=== PATIENT | female | born 1960 | race Caucasian/White ===

== ENCOUNTER 2017-08-11 17:38 | Emergency (ER) | payer OTHER, SELFPAY ==
[2017-08-11 17:38] VITALS: BP 147/91; PULSE 106; RESP 20; TEMP 36.6; O2SAT 96; BMI 54.3
--- NOTE | 2017-08-11 18:37 | ED.RN ---
pt chart has been up for 1 hour. no physician has seen. charge nurse made aware
--- NOTE | 2017-08-11 18:52 | ED.VISSUMM ---
- ER Visit Summary Date of Service: 08/11/17 Chief Complaint: Back pain History of Present Illness: The patient is a 57 F who states that she is having a flare of her chronic back pain. The patient states that she has recently had an MRI (showed some disc disease) and is seeing Dr. Scruggs at the [facility] for spine surgery. She was referred back to [facility] to pain management for injections. She has been taking some anti-inflammatories and gabapentin for other nerve pain. She states she is not sure what happened today but she is having increasing pain in the left buttock. No bowel or bladder dysfunction. She has been able to ambulate. No muscle weakness. No change in sensation. No fevers. No history of IV drug use. No rashes. Physical Examination: Afebrile vital signs are stable Gen: Well-nourished well-developed obese Head: Normocephalic atraumatic Eyes: Perrl EOMI ENT: TMs clear no rhinorrhea moist mucous membranes Neck: Supple no lymphadenopathy no JVD nontender CVS: Regular rate rhythm no murmurs normal S1-S2 Respiratory: No distress clear to auscultation bilaterally chest nontender Abdomen: Soft nontender nondistended normal bowel sounds no masses Back: Her to palpation in the left buttock and lower left paraspinal lumbar musculature Extremity: Nontender no edema Skin: Normal color no rash Neuro: alert orientated ?3 CN II-XII intact normal strength sensation reflexes gait cerebellar Psych: Normal affect normal mood Emergency Department Course and Treatment: Oars report was performed. It has been many months since the patient received a prescription for narcotic and then only for a few pills. Patient will receive a dose of morphine here and I will write for a couple days worth of [place]. She will follow-up with her primary care physician. Impression:. Acute on chronic low back pain This note was generated with [employer] dictation software. It may contain incorrect words, spelling, and punctuation that were not noted in review of the chart prior to signing ED Disposition - Plan for ED Patient: Disposition: Home or Assisted Living Chief Complaint: Back Instructions: ED Spasm Back No Trauma Prescriptions: Hydrocodone Bitart/Apap 5-325 [[place] 5/325] 1 tab PO Q4H PRN PRN 4 Days #20 tab PRN Reason: Pain Referrals: James Lima MD [STAFF PHYSICIAN] - As soon as possible
[2017-08-11] MEDS: morphine 10 MG/ML Syringe IM (18:56)
--- NOTE | 2017-08-11 18:56 | ED.DCSUM_ITS ---
- ER Visit Summary Date of Service: 08/11/17 Chief Complaint: Back pain History of Present Illness: The patient is a 57 F who states that she is having a flare of her chronic back pain. The patient states that she has recently had an MRI (showed some disc disease) and is seeing Dr. Scruggs at the [facility] for spine surgery. She was referred back to [facility] to pain management for injections. She has been taking some anti-inflammatories and gabapentin for other nerve pain. She states she is not sure what happened today but she is having increasing pain in the left buttock. No bowel or bladder dysfunction. She has been able to ambulate. No muscle weakness. No change in sensation. No fevers. No history of IV drug use. No rashes. Physical Examination: Afebrile vital signs are stable Gen: Well-nourished well-developed obese Head: Normocephalic atraumatic Eyes: Perrl EOMI ENT: TMs clear no rhinorrhea moist mucous membranes Neck: Supple no lymphadenopathy no JVD nontender CVS: Regular rate rhythm no murmurs normal S1-S2 Respiratory: No distress clear to auscultation bilaterally chest nontender Abdomen: Soft nontender nondistended normal bowel sounds no masses Back: Her to palpation in the left buttock and lower left paraspinal lumbar musculature Extremity: Nontender no edema Skin: Normal color no rash Neuro: alert orientated ?3 CN II-XII intact normal strength sensation reflexes gait cerebellar Psych: Normal affect normal mood Emergency Department Course and Treatment: Oars report was performed. It has been many months since the patient received a prescription for narcotic and then only for a few pills. Patient will receive a dose of morphine here and I will write for a couple days worth of [place]. She will follow-up with her primary care physician. Impression:. Acute on chronic low back pain This note was generated with [employer] dictation software. It may contain incorrect words, spelling, and punctuation that were not noted in review of the chart prior to signing ED Disposition - Plan for ED Patient: Disposition: Home or Assisted Living Chief Complaint: Back Instructions: ED Spasm Back No Trauma Prescriptions: Hydrocodone Bitart/Apap 5-325 [[place] 5/325] 1 tab PO Q4H PRN PRN 4 Days #20 tab PRN Reason: Pain Referrals: James Lima MD [STAFF PHYSICIAN] - As soon as possible
[2017-08-11 19:21] VITALS: BP 132/70; PULSE 82; RESP 14; O2SAT 99
== END 2017-08-11 19:23 | disposition home or self-care (01) ==
PROVIDERS: Emergency Provider Emergency Medicine; Family Provider Family Medicine; PCP Family Medicine
DX: M54.5 Low back pain (principal); G89.29 Other chronic pain; I10 Essential (primary) hypertension; G25.81 Restless legs syndrome; K21.9 Gastro-esophageal reflux disease without esophagitis; E66.9 Obesity, unspecified; Z79.899 Other long term (current) drug therapy
CPT/HCPCS: 96372; 99282

== ENCOUNTER 2017-09-24 13:38 | Day surgery (SDC) | payer OTHER, SELFPAY ==
[2017-09-24 13:57] VITALS: BP 151/93; PULSE 93; RESP 16; TEMP 35.9; O2SAT 100; BMI 53.8
--- NOTE | 2017-09-24 14:50 | RAD_ITS ---
PROCEDURE: Caudal block. DATE OF EXAMINATION: September 24, 2017. INDICATION: Female, 57 years old. Chronic low back pain. FLUOROSCOPY TIME (if supplied): (0:20) minutes/seconds Intraoperative imaging provided for caudal block. RAD/Fluor Guidance for Spine Inj IMPRESSION: Intraoperative imaging provided for caudal block. Electronically Signed: Angel Chaudhari MD at 15:36 EDT Tel [phone], Service support ,
[2017-09-24] MEDS: MethylPREDNISolone Acetate 80 MG/ML Vial (14:55)
[2017-09-24] MEDS: Bupivacaine 0.25% 30 ML Vial (14:55)
[2017-09-24 15:00] VITALS: BP 151/93
[2017-09-24 15:02] VITALS: BP 141/88; BP 151/93; PULSE 101; RESP 20; TEMP 36.7; O2SAT 95
[2017-09-24 15:07] VITALS: BP 146/90; BP 151/93; PULSE 104; RESP 16; O2SAT 92
[2017-09-24 15:12] VITALS: BP 140/88; BP 151/93; PULSE 103; RESP 16; O2SAT 92
[2017-09-24 15:17] VITALS: BP 145/87; BP 151/93; PULSE 102; RESP 16; TEMP 36.6; O2SAT 92
--- NOTE | 2017-09-24 15:33 | OP.PCM_ITS ---
Problem List (1) Degeneration of intervertebral disc of lumbosacral region Status: Chronic (2) Radiculopathy of lumbosacral region Status: Chronic Report of Operation Date of Procedure: 09/24/17 Pre-Operative Diagnosis: Lumbosacral radiculopathy, lumbosacral degenerative disc disease, lumbosacral spinal stenosis Post-Operative Diagnosis: Lumbosacral radiculopathy, lumbosacral degenerative disc disease, lumbosacral spinal stenosis Surgery/Procedure Performed:: Diagnostic/therapeutic caudal epidural steroid injection Description of Surgical Findings:: PROCEDURE: Diagnostic/therapeutic caudal epidural steroid injection PREOPERATIVE DIAGNOSIS: Lumbosacral radiculopathy, lumbosacral degenerative disc disease, lumbosacral spinal stenosis POSTOPERATIVE DIAGNOSIS: Lumbosacral radiculopathy, lumbosacral degenerative disc disease, lumbosacral spinal stenosis ANESTHESIA: MAC COMPLICATIONS: None BLOOD LOSS: Minimal PROCEDURE IN DETAIL: History and physical today was reviewed. Risks and benefits of the procedure were explained. The patient understood, agreed to our procedure, and informed consent was obtained. IV inserted per routine protocol. The patient was taken to the operating room, placed in a prone position with a pillow positioned underneath the abdomen. The lower back and tailbone area was prepped and draped in a sterile fashion using iodine ?3 under fluoroscopy guidance on the lateral view the caudal space was identified the skin and subcutaneous tissue and size approximately 3 cc of 1 % lidocaine using a 25-gauge regular needle under direct visualization fluoroscopy using the lateral approach using a 22-gauge 3-1/2 inch spinal needle the needle was advanced via the skin through the sacral hiatus, tip of the needle passed through the sacrococcygeal ligament advanced approximately S4 area after negative aspiration for blood or CSF a total of 3 cc of contrast were injected to confirm correct placement of the needle as well as cephalad spread the spread was followed to approximately L5 area after confirmation AP as well as lateral view repeated negative aspiration a total of 15 cc of preservative-free 0.125% Marcaine with 80 mg of the portal was injected easily. The needles were then removed intact. The patient experienced no signs or symptoms intrathecal, intravascular injection. The patient experienced no paraesthesia. The procedure was completed without any apparent difficult, any complication. The patient appeared to tolerate well. ASSESSMENT AND PLAN: This is a 57-year-old female with lumbosacral radiculopathy, lumbosacral degenerative disc disease, lumbosacral spinal stenosis status post diagnostic/ therapeutic caudal epidural steroid injection. The patient will continue her current medications. The patient will follow in approximately 2 weeks for possible repeat of the procedure if indicated.
[2017-09-24] MEDS: HYDROcodone Bitartrate/Apap 5/325 Tablet PO (15:45)
== END 2017-09-24 16:04 | disposition home or self-care (01) ==
LOC: SDC 13:38 → AC 13:40
PROVIDERS: Family Provider Family Medicine; PCP Family Medicine; Visit Provider Anesthesiology Pain Medicine
PROC: 3E0S3BZ Introduction of Anesthetic Agent into Epidural Space, Percutaneous Approach (ICD-10-PCS; CPT 62282; principal; 2017-09-24 14:45)
DX: M51.17 Intervertebral disc disorders with radiculopathy, lumbosacral region (principal); M47.27 Other spondylosis with radiculopathy, lumbosacral region; M48.07 Spinal stenosis, lumbosacral region; G89.29 Other chronic pain; M06.9 Rheumatoid arthritis, unspecified; J44.9 Chronic obstructive pulmonary disease, unspecified; I10 Essential (primary) hypertension; E03.9 Hypothyroidism, unspecified; G25.81 Restless legs syndrome; G43.909 Migraine, unspecified, not intractable, without status migrainosus; G47.30 Sleep apnea, unspecified; K21.9 Gastro-esophageal reflux disease without esophagitis; G47.00 Insomnia, unspecified; F31.9 Bipolar disorder, unspecified; F41.9 Anxiety disorder, unspecified; E66.3 Overweight; Z68.43 Body mass index [BMI] 50.0-59.9, adult; M79.1 Myalgia; F17.210 Nicotine dependence, cigarettes, uncomplicated; Z78.0 Asymptomatic menopausal state; Z79.891 Long term (current) use of opiate analgesic; Z79.899 Other long term (current) drug therapy
CPT/HCPCS: 62323; 64483; 77003; J7120; J3490

== ENCOUNTER 2017-11-05 09:00 | Day surgery (SDC) | payer OTHER, SELFPAY ==
[2017-11-05 09:20] VITALS: BP 118/86; PULSE 97; RESP 20; TEMP 36.3; O2SAT 100; BMI 56.2
--- NOTE | 2017-11-05 10:30 | RAD_ITS ---
STUDY: LEFT FACET JOINT BLOCK. REASON FOR EXAM: Female, 57 years old. Back pain. FLUOROSCOPY TIME (if supplied): (0:25) minutes/seconds TECHNIQUE: Intraoperative imaging provided for left L3-S1 facet joint block. COMPARISON: None. FINDINGS: Intraoperative imaging provided for left L3-S1 facet joint block. RAD/L/S Spine Min 4 Views IMPRESSION: Imaging provided for left L3-S1 facet joint block. Electronically Signed: Angel Chaudhari MD at 11:20 EDT Tel [phone], Service support ,
[2017-11-05 10:55] VITALS: BP 118/86; BP 126/88; PULSE 94; RESP 16; TEMP 36.2; O2SAT 92
[2017-11-05 11:00] VITALS: BP 118/86; BP 130/51; PULSE 93; RESP 16; O2SAT 92
[2017-11-05 11:05] VITALS: BP 113/86; BP 118/86; PULSE 92; RESP 18; O2SAT 97
[2017-11-05 11:10] VITALS: BP 118/86; BP 125/82; PULSE 88; RESP 16; TEMP 36.6; O2SAT 92
[2017-11-05 11:30] VITALS: BP 118/86; BP 125/82
--- NOTE | 2017-11-05 11:50 | OP.PCM_ITS ---
Problem List (1) Lumbosacral spondylosis Status: Chronic (2) Degeneration of intervertebral disc of lumbosacral region Status: Chronic (3) Radiculopathy of lumbosacral region Status: Chronic Report of Operation Date of Procedure: 11/05/17 Pre-Operative Diagnosis: Lumbosacral spondylosis, lumbosacral degenerative disc disease, lumbar facet arthropathy Post-Operative Diagnosis: Lumbosacral spondylosis, lumbosacral degenerative disc disease, lumbar facet arthropathy Surgery/Procedure Performed:: Left-sided lumbar facet steroid injection L3, L4, L5, S1 Description of Surgical Findings:: PROCEDURE: Left-sided lumbar facet steroid injection L3, L4, L5, S1 PREOPERATIVE DIAGNOSIS: Lumbosacral spondylosis, lumbosacral degenerative disc disease, and lumbar facet arthropathy POSTOPERATIVE DIAGNOSIS: Lumbosacral spondylosis, lumbosacral degenerative disc disease, and lumbar facet arthropathy ANESTHESIA: MAC COMPLICATIONS: None BLOOD LOSS: Minimal PROCEDURE IN DETAIL: History and physical today was reviewed. Risks and benefits of the procedure were explained. The patient understood, agreed to our procedure, and informed consent was obtained. IV inserted per routine protocol. The patient was taken to the operating room, placed in a prone position with a pillow positioned underneath the abdomen. The left side of her lower back was prepped and draped in a sterile fashion using iodine x3. Under fluoroscopy guidance, on AP view, L3 through S1 vertebral bodies were visualized. Skin and subcutaneous tissues were anesthetized with approximately 5 mL of 1% lidocaine using a 25-gauge regular needle. Under direct visualization with fluoroscopy at approximately 25-degree angle, starting on the left L3, ending on the left S1, passing through the L4-L5 using a 22-gauge 3 1/2-inch spinal needle, the needle was advanced via the skin. The tip of the needle was maneuvered and directed towards the superior and medial gutter of the transverse process at the vicinity of the medial branch. Once the tip of the needle was in contact with the bone, the needle pulled approximately 2 mm off the bone. After negative aspiration of blood with CSF and confirmation of AP as well as oblique view, a total of 8 mL of preservative-free 0.25% Marcaine with 80 mg of Depo- Medrol was injection in divided doses between those 4 levels. The needles were then removed intact. The patient experienced no signs or symptoms intrathecal, intravascular injection. The patient experienced no paraesthesia. The procedure was completed without any apparent difficult, any complication. The patient appeared to tolerate well. ASSESSMENT AND PLAN: This is a 57-year-old Female with lumbosacral spondylosis, lumbosacral degenerative disc disease, and lumbar facet arthropathy, status post left-sided lumbar facet steroid injection L3 through S1. The patient will continue her current medications. The patient will follow in approximately 2 weeks for possible repeat of the procedure if indicated.
== END 2017-11-05 11:49 | disposition home or self-care (01) ==
LOC: SDC 09:01 → AC 09:02
PROVIDERS: Family Provider Family Medicine; PCP Family Medicine; Visit Provider Anesthesiology Pain Medicine
PROC: 3E0T3BZ Introduction of Anesthetic Agent into Peripheral Nerves and Plexi, Percutaneous Approach (ICD-10-PCS; CPT 64493; principal; 2017-11-05 10:25)
DX: M51.17 Intervertebral disc disorders with radiculopathy, lumbosacral region (principal); M47.27 Other spondylosis with radiculopathy, lumbosacral region; M48.07 Spinal stenosis, lumbosacral region; M79.1 Myalgia; G89.29 Other chronic pain; J44.9 Chronic obstructive pulmonary disease, unspecified; M06.9 Rheumatoid arthritis, unspecified; I10 Essential (primary) hypertension; E03.9 Hypothyroidism, unspecified; G25.81 Restless legs syndrome; G43.909 Migraine, unspecified, not intractable, without status migrainosus; F31.9 Bipolar disorder, unspecified; G47.00 Insomnia, unspecified; G47.30 Sleep apnea, unspecified; K21.9 Gastro-esophageal reflux disease without esophagitis; F41.9 Anxiety disorder, unspecified; F17.200 Nicotine dependence, unspecified, uncomplicated; Z78.0 Asymptomatic menopausal state; Z79.891 Long term (current) use of opiate analgesic; Z79.899 Other long term (current) drug therapy; Z87.11 Personal history of peptic ulcer disease; Z96.653 Presence of artificial knee joint, bilateral
CPT/HCPCS: 64493; 64494; 64495; 64483; 72110; J7120

== ENCOUNTER 2017-12-10 06:39 | Day surgery (SDC) | payer OTHER, SELFPAY ==
[2017-12-10] VITALS (7 sets, daily range): BP systolic 97–120; BP diastolic 71–83; PULSE 84–90; RESP 16–18; TEMP 36–36.8; O2SAT 93–97; BMI 54.9
--- NOTE | 2017-12-10 08:10 | RAD_ITS ---
PROCEDURE: Fluoroscopy for pain management, lumbar facet block L3-S1 DATE OF EXAMINATION: 12/10/2017 INDICATION: Female, 57 years old. Lower back pain. PHYSICIAN: Dr. Arreguin FLUOROSCOPY TIME (if supplied): (0:27) minutes/seconds RADIATION DOSAGE (If Supplied By Facility): 21.27 mGy Images: 4 fluoroscopic spot images. PROCEDURE/TECHNIQUE: Intraoperative imaging provided under direction, supervision and review of the intraoperative physician for left L3-S1 facet joint block. Please see intraoperative note for details. RAD/L/S Spine Min 4 Views IMPRESSION: Fluoroscopic imaging provided for left L3-S1 facet joint block for pain management. Please see intraoperative note for details Electronically Signed: Shabbir Arauz, at 10:03 EDT Tel , Service support ,
[2017-12-10] MEDS: Bupivacaine 0.25% 30 ML Vial (08:15)
[2017-12-10] MEDS: MethylPREDNISolone Acetate 80 MG/ML Vial (08:15)
--- NOTE | 2017-12-10 10:40 | OP.PCM_ITS ---
Problem List (1) Spondylosis of lumbosacral region without myelopathy or radiculopathy Status: Chronic (2) Degeneration of intervertebral disc of lumbosacral region Status: Chronic Report of Operation Date of Procedure: 12/10/17 Pre-Operative Diagnosis: Lumbosacral spondylosis, lumbosacral degenerative disc disease, lumbar facet arthropathy Post-Operative Diagnosis: Lumbosacral spondylosis, lumbosacral degenerative disc disease, lumbar facet arthropathy Surgery/Procedure Performed:: Left-sided lumbar facet steroid injection L3, L4, L5, L5, S1 Description of Surgical Findings:: PROCEDURE: Left-sided lumbar facet steroid injection L3, L4, L5, S1 PREOPERATIVE DIAGNOSIS: Lumbosacral spondylosis, lumbosacral degenerative disc disease, and lumbar facet arthropathy POSTOPERATIVE DIAGNOSIS: Lumbosacral spondylosis, lumbosacral degenerative disc disease, and lumbar facet arthropathy ANESTHESIA: MAC COMPLICATIONS: None BLOOD LOSS: Minimal PROCEDURE IN DETAIL: History and physical today was reviewed. Risks and benefits of the procedure were explained. The patient understood, agreed to our procedure, and informed consent was obtained. IV inserted per routine protocol. The patient was taken to the operating room, placed in a prone position with a pillow positioned underneath the abdomen. The right side of his lower back was prepped and draped in a sterile fashion using iodine x3. Under fluoroscopy guidance, on AP view, L3 through S1 vertebral bodies were visualized. Skin and subcutaneous tissues were anesthetized with approximately 5 mL of 1% lidocaine using a 25-gauge regular needle. Under direct visualization with fluoroscopy at approximately 25-degree angle, starting on the left L3, ending on the left S1, passing through the L4-L5 using a 22-gauge 3 1/2-inch spinal needle, the needle was advanced via the skin. The tip of the needle was maneuvered and directed towards the superior and medial gutter of the transverse process at the vicinity of the medial branch. Once the tip of the needle was in contact with the bone, the needle pulled approximately 2 mm off the bone. After negative aspiration of blood with CSF and confirmation of AP as well as oblique view, a total of 8 mL of preservative-free 0.25% Marcaine with 80 mg of Depo- Medrol was injection in divided doses between those 4 levels. The needles were then removed intact. The patient experienced no signs or symptoms intrathecal, intravascular injection. The patient experienced no paraesthesia. The procedure was completed without any apparent difficult, any complication. The patient appeared to tolerate well. ASSESSMENT AND PLAN: This is a 57-year-old Female with Lumbosacral spondylosis, lumbosacral degenerative disc disease, and lumbar facet arthropathy and lumbar facet arthropathy, status post left-sided lumbar facet steroid injection [id number]. The patient will continue her current medications. The patient will follow in approximately 2 weeks for possible repeat of the procedure if indicated.
== END 2017-12-10 09:22 | disposition home or self-care (01) ==
LOC: SDC 06:39 → AC 06:40
PROVIDERS: Family Provider Family Medicine; PCP Family Medicine; Visit Provider Anesthesiology Pain Medicine
PROC: 3E0T3BZ Introduction of Anesthetic Agent into Peripheral Nerves and Plexi, Percutaneous Approach (ICD-10-PCS; CPT 64493; principal; 2017-12-10 08:05)
DX: M47.897 Other spondylosis, lumbosacral region (principal); M51.37 Other intervertebral disc degeneration, lumbosacral region; M46.96 Unspecified inflammatory spondylopathy, lumbar region; M48.07 Spinal stenosis, lumbosacral region; I10 Essential (primary) hypertension; E03.9 Hypothyroidism, unspecified; G25.81 Restless legs syndrome; M06.9 Rheumatoid arthritis, unspecified; F32.9 Major depressive disorder, single episode, unspecified; F41.9 Anxiety disorder, unspecified; F31.9 Bipolar disorder, unspecified; J44.9 Chronic obstructive pulmonary disease, unspecified; G43.909 Migraine, unspecified, not intractable, without status migrainosus; K21.9 Gastro-esophageal reflux disease without esophagitis; Z78.0 Asymptomatic menopausal state; Z98.1 Arthrodesis status; Z90.49 Acquired absence of other specified parts of digestive tract; Z96.653 Presence of artificial knee joint, bilateral; Z79.891 Long term (current) use of opiate analgesic; Z79.899 Other long term (current) drug therapy; F17.210 Nicotine dependence, cigarettes, uncomplicated
CPT/HCPCS: 64493; 64494; 64495; 64483; 72110; J7120

== ENCOUNTER 2018-01-21 06:47 | Day surgery (SDC) | payer OTHER, SELFPAY ==
[2018-01-21] VITALS (7 sets, daily range): BP systolic 114–128; BP diastolic 67–87; PULSE 94–99; RESP 16–20; TEMP 36.1–36.7; O2SAT 93–95; BMI 55.3
[2018-01-21] MEDS: Bupivacaine 0.5% PF 10 ML VIAL (08:22)
[2018-01-21] MEDS: MethylPREDNISolone Acetate 40 MG/ML Vial IM (08:22)
--- NOTE | 2018-01-21 08:30 | RAD_ITS ---
STUDY: X-RAY - LUMBAR SPINE REASON FOR EXAM: Female, 57 years old. Left L3 S1 radiofrequency ablation. TECHNIQUE: 6 coned-down view(s) of the lumbar spine were obtained intraoperatively. 52.7 seconds of fluoroscopy was performed.. COMPARISON: None FINDINGS: Intraoperative imaging provided for left L3 S1 radiofrequency ablation. RAD/L/S Spine Min 4 Views IMPRESSION: Imaging provided for left L3 S1 radiofrequency ablation. Electronically Signed: Angel Chaudhari MD at 14:16 EDT Tel [phone], Service support ,
--- NOTE | 2018-01-21 12:00 | PCM.OPRPT ---
Problem List (1) Degeneration of intervertebral disc of lumbosacral region Status: Chronic (2) Lumbosacral spondylosis Status: Chronic (3) Spondylosis of lumbosacral region without myelopathy or radiculopathy Status: Chronic Report of Operation Date of Procedure: 01/21/18 Pre-Operative Diagnosis: Lumbosacral spondylosis, lumbosacral degenerative disc disease, lumbar facet arthropathy Post-Operative Diagnosis: Lumbosacral spondylosis, lumbosacral degenerative disc disease, lumbar facet arthropathy Surgery/Procedure Performed:: Left-sided lumbar radiofrequency ablation of the medial branch at L3, L4, L5, S1 Description of Surgical Findings:: PROCEDURE: Left-sided radiofrequency ablation of the medial branch L3, L4, L5, S1 PREOPERATIVE DIAGNOSES: Lumbosacral spondylosis, lumbosacral degenerative disc disease, lumbar facet arthropathy POSTOPERATIVE DIAGNOSES: Lumbosacral spondylosis, lumbosacral degenerative disc disease, lumbar facet arthropathy ANESTHESIA: MAC COMPLICATIONS: None BLOOD LOSS: Minimal PROCEDURE IN DETAIL: History and physical today was reviewed. Risks and benefits of procedure explained. The patient understood, agreed to the procedure and informed consent was obtained. IV inserted per routine protocol. The patient was taken to the operating room, placed in the prone position with a pillow positioned underneath the abdomen. The left side of the lower back was prepped and draped in a sterile fashion using iodine x 3. Under fluoroscopy guidance, on an oblique view, the L3 through S1 vertebral bodies were visualized. The skin and subcutaneous tissue was anesthetized with approximately 10 mL of 1% lidocaine using a 25-gauge regular needle. Under direct visualization with fluoroscopy at approximately 25-degree angle, starting on the left L3, ending on the left S1 passing through the L4-L5 using a 20-gauge 15 cm with a 10 mm curved active tip radiofrequency ablation needle the needle passed through the skin. The tip of the needle was maneuvered and directed towards the superior and medial gutter of the transverse process at the vicinity of the medial branch. Once the tip of the needle was in contact with the bone, the needle pulled approximately 2 mm up the bone. The stylet of each needle was then removed. After negative aspiration of blood with CSF and confirmation of AP as well as oblique view, radiofrequency ablation probe was then inserted at each level. Impedance was then recorded at L3 to be 210, at L4 244, at L5 286, at S1 300 ohm. Motor-evoked potential was then initiated to 1.5 volt without any motor response at each corresponding level. The probe was then removed intact and a total of 6 mL preservative-free 1% lidocaine was injected in divided doses between those 4 levels after negative aspiration of blood with CSF. The radiofrequency ablation probe was then reinserted after confirmation of AP, oblique as well as lateral view. Radiofrequency ablation was then initiated to 80 degrees Celsius for 90 seconds at each level. Once concluded, the probe was then removed intact and a total of 6 mL of preservative-free 0.25% Marcaine with 40 mg Depo-Medrol was injected in divided doses between those 4 levels. The needles were then removed intact. The patient experienced no signs or symptoms of intrathecal, intravascular injection. The patient experienced no paraesthesia. The procedure was completed without any apparent difficulty, any complication. The patient appeared to tolerate well. Sensory as well as motor exam was unchanged from prior to procedure. ASSESSMENT AND PLAN: This is a 57-year-old female with lumbosacral spondylosis, lumbosacral degenerative disc disease, lumbar facet arthropathy, status post left-sided radiofrequency ablation of the medial branch L3 through S1. The patient will continue her current medications. The patient will follow up in approximately 2 weeks for reevaluation.
== END 2018-01-21 09:45 | disposition home or self-care (01) ==
LOC: SDC 06:49 → AC 06:52
PROVIDERS: Family Provider Family Medicine; PCP Family Medicine; Visit Provider Anesthesiology Pain Medicine
PROC: (CPT 64635; principal; 2018-01-21 08:25)
DX: M51.37 Other intervertebral disc degeneration, lumbosacral region (principal); M47.817 Spondylosis without myelopathy or radiculopathy, lumbosacral region; M54.17 Radiculopathy, lumbosacral region; M48.07 Spinal stenosis, lumbosacral region; M46.96 Unspecified inflammatory spondylopathy, lumbar region; F32.9 Major depressive disorder, single episode, unspecified; I10 Essential (primary) hypertension; E03.9 Hypothyroidism, unspecified; F41.9 Anxiety disorder, unspecified; G25.81 Restless legs syndrome; M19.90 Unspecified osteoarthritis, unspecified site; M06.9 Rheumatoid arthritis, unspecified; F31.9 Bipolar disorder, unspecified; J44.9 Chronic obstructive pulmonary disease, unspecified; G47.30 Sleep apnea, unspecified; G43.909 Migraine, unspecified, not intractable, without status migrainosus; K21.9 Gastro-esophageal reflux disease without esophagitis; Z78.0 Asymptomatic menopausal state; Z90.49 Acquired absence of other specified parts of digestive tract; Z98.1 Arthrodesis status; Z79.891 Long term (current) use of opiate analgesic; Z79.899 Other long term (current) drug therapy; F17.210 Nicotine dependence, cigarettes, uncomplicated
CPT/HCPCS: 64635; 64636 ×3; 72110; 76000; J7120; J3490

== ENCOUNTER 2018-04-08 06:15 | Day surgery (SDC) | payer OTHER, SELFPAY ==
[2018-04-08 06:41] VITALS: BP 141/96; PULSE 102; RESP 18; TEMP 36; O2SAT 94; BMI 55.5
[2018-04-08] MEDS: Bupivacaine 0.25% 30 ML Vial (06:48)
--- NOTE | 2018-04-08 07:30 | RAD_ITS ---
PROCEDURE: Left L3-S1 facet joint block. DATE OF EXAMINATION: April 08, 2018. INDICATION: Female, 58 years old. Chronic low back pain. FLUOROSCOPY TIME (if supplied): (0:25) minutes/seconds. For cone down intraoperative views were obtained. Intraoperative fluoroscopy was performed for left L3-S1 facet joint block. RAD/L/S Spine Min 4 Views IMPRESSION: Intraoperative fluoroscopic services provided for left L3-S1 facet joint block. Electronically Signed: Angel Chaudhari MD at 8:26 EST Tel [phone], Service support ,
[2018-04-08] MEDS: MethylPREDNISolone Acetate 80 MG/ML Vial (07:43)
[2018-04-08 07:50] VITALS: BP 107/94; BP 128/81; BP 141/96; PULSE 93; PULSE 95; RESP 18; TEMP 36.7; O2SAT 92; O2SAT 93
[2018-04-08 08:00] VITALS: BP 129/82; BP 141/96; PULSE 92; RESP 18; O2SAT 96
[2018-04-08 08:05] VITALS: BP 118/76; BP 141/96; PULSE 96; RESP 18; TEMP 36.9; O2SAT 95
[2018-04-08 08:13] VITALS: BP 141/96
--- NOTE | 2018-04-08 08:19 | OP.PCM_ITS ---
Problem List (1) Degeneration of intervertebral disc of lumbosacral region Status: Chronic (2) Lumbosacral spondylosis Status: Chronic (3) Spondylosis of lumbosacral region without myelopathy or radiculopathy Status: Chronic Report of Operation Date of Procedure: 04/08/18 Pre-Operative Diagnosis: Lumbosacral spondylosis, lumbosacral degenerative disc disease, lumbar facet arthropathy Post-Operative Diagnosis: Lumbosacral spondylosis, lumbosacral degenerative disc disease, lumbar facet arthropathy Surgery/Procedure Performed:: Left-sided lumbar facet steroid injection L3, L4, L5, S1 Description of Surgical Findings:: PROCEDURE: Left sided lumbar facet steroid injection L3, L4, L5, S1 PREOPERATIVE DIAGNOSIS: Lumbosacral spondylosis, lumbosacral degenerative disc disease, lumbar facet arthropathy POSTOPERATIVE DIAGNOSIS: Lumbosacral spondylosis, lumbosacral degenerative disc disease, lumbar facet arthropathy ANESTHESIA: MAC COMPLICATIONS: None BLOOD LOSS: Minimal PROCEDURE IN DETAIL: History and physical today was reviewed. Risks and benefits of the procedure were explained. The patient understood, agreed to our procedure, and informed consent was obtained. IV inserted per routine protocol. The patient was taken to the operating room, placed in a prone position with a pillow positioned underneath the abdomen. The left side of her lower back was prepped and draped in a sterile fashion using iodine x3. Under fluoroscopy guidance, on AP view, L3 through S1 vertebral bodies were visualized. Skin and subcutaneous tissues were anesthetized with approximately 5 mL of 1% lidocaine using a 25-gauge regular needle. Under direct visualization with fluoroscopy at approximately 25-degree angle, starting on the left L3, ending on the left S1, passing through the L4-L5 using a 22-gauge 5-inch spinal needle, the needle was advanced via the skin. The tip of the needle was maneuvered and directed towards the superior and medial gutter of the transverse process at the vicinity of the medial branch. Once the tip of the needle was in contact with the bone, the needle pulled approximately 2 mm off the bone. After negative aspiration of blood with CSF and confirmation of AP as well as oblique view, a total of 8 mL of preservative-free 0.25% Marcaine with 80 mg of Depo- Medrol was injection in divided doses between those 4 levels. The needles were then removed intact. The patient experienced no signs or symptoms intrathecal, intravascular inje ction. The patient experienced no paraesthesia. The procedure was completed without any apparent difficult, any complication. The patient appeared to tolerate well. ASSESSMENT AND PLAN: This is a 57-year-old Female with Lumbosacral spondylosis, lumbosacral degenerative disc disease, lumbar facet arthropathy, status post right-sided lumbar facet steroid injection L3 through S1. The patient will continue her current medications. The patient will follow in approximately 2 weeks for possible repeat of the procedure if indicated.
--- OUTSIDE RECORDS SUMMARY | 2018-06-01 03:49 | XMS RPT_ITS ---
:1960 Author Organization [facility] Address [address] [place] [id number] Phone Care Team Providers Name Role Phone Valenciaco PA-Bertha Nayak Unavailable Reason for Visit Reason For Visit Description Start Date New/Est - 1st visit with physician Preliminary reason for visit data, not yet signed by the author as of back pain Preliminary reason for visit data, not yet signed by the author as of Chief Complaint Chief Complaint Description Start Date back pain Preliminary chief complaint data, not yet signed by the author as of Instructions No information available. Plan of Care Type Date Detail Appointment 01:30 PM Bertha Barboza PA-Nael, [facility] [facility], [place], [address], Appointment 08:50 AM Dung Chavez MD, [address] [facility], [facility], [place], [address], Pending order MRI lumbar without contrast Patient education [id number] Medications Medication Instructions Start Stop Generic Name NDC Provider Date Date WELLBUTRIN SR 150 MG one tablet BUPROPION HCL [id number] Bertha [id number] twice daily 07/23 D'Kelsi PA-C CYMBALTA 60 MG CPEP one capsule DULOXETINE HCL 93961531853 Bertha daily 07/23 D'Kelsi PA-C TRAZODONE HCL 100 MG one and half TRAZODONE HCL [id number] Bertha TABS tablets daily 07/23 D'Kelsi PA-C LISINOPRIL 5 MG TABS one tablet LISINOPRIL [id number] Bertha daily 07/23 D'Kelsi PA-C HYDROCHLOROTHIAZIDE one tablet HYDROCHLOROTHIAZIDE [id number] Bertha 25 MG TABS daily 07/23 D'Kelsi PA-C PRILOSEC 20 MG CPDR one capsule OMEPRAZOLE [id number] Bertha daily 07/23 D'Kelsi PA-C LEVOTHYROXINE SODIUM one tablet LEVOTHYROXINE SODIUM 73099094606 Bertha 125 MCG TABS daily 07/23 D'Kelsi PA-C TOPAMAX 25 MG TABS one tablet TOPIRAMATE [id number] Bertha daily 07/23 D'Kelsi PA-C BENTYL 10 MG CAPS one tablet DICYCLOMINE HCL 47317857558 Bertha three times 07/23 D'Kelsi daily PA-C GABAPENTIN 600 MG one tablet GABAPENTIN 86830023405 Bertha TABS daily 07/23 D'Kelsi PA-C Conditions or Problems Problem Name Problem Onset Status Entry Provider Comment Standard Annotate Code Date Date Description Lumbar [id number] Active Bertha Lumbar radiculopathy (SNOMED 07/23 07/[address]) PA-C DDD [id number] Active Bertha 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 07/23 D'Kelsi lumbar L5-S1 disc disease), CT) PA-C intervertebral lumbar disc Allergies, Adverse Reactions, Alerts Allergy Name Reaction Start Date Severity Status Provider Description FLOXIN eye redness, rash Critical Active Bertha D'Kelsi PA-C SULFA codes Critical Active Bertha D'Kelsi PA-C Social History Concept Description Observation Name Observation Value Units Start Date Alcohol use ETOH USE Yes Preliminary social history data, not yet signed by the author as of Current every day SMOK STATUS current everyday smoker smoker Preliminary social history data, not yet signed by the author as of Details of drug DRUG USE No misuse behavior Preliminary social history data, not yet signed by the author as of Tobacco use and SMOK ADVICE Yes exposure Preliminary social history data, not yet signed by the author as of Vital Signs Date Name Value Unit Description BMI (Body Mass 55.11 kg/m2 Body Mass Index Index) [Ratio] Preliminary vital sign data, not yet signed by the author as of BP Diastolic 84 mm[Hg] blood pressure, diastolic Preliminary vital sign data, not yet signed by the author as of BP Systolic 132 mm[Hg] blood pressure, systolic Preliminary vital sign data, not yet signed by the author as of Heart Rate 100 /min pulse rate E&M Preliminary vital sign data, not yet signed by the author as of Height 63 [in_us] height E&M Preliminary vital sign data, not yet signed by the author as of Height 160 cm height in centimeters E&M Preliminary vital sign data, not yet signed by the author as of Weight Measured 310 [lb_av] weight E&M Preliminary vital sign data, not yet signed by the author as of Weight Measured 141 kg weight in kilograms E&M Preliminary vital sign data, not yet signed by the author as of Results Date Name Value Unit Range Flag Description Office Visit: New/Est - 1st visit with physician, Rm: 3 MEDS REVIEW Done Documentation of current medications (procedure) Preliminary observation data, not yet signed by the author as of SMOK ADVICE Yes Smoking cessation education (procedure) Preliminary observation data, not yet signed by the author as of SMOK STATUS current everyday Tobacco smoker smoking status NHIS Preliminary observation data, not yet signed by the author as of Preliminary observation data, not yet signed by the author as of Clinical Summary: [facility] OOP account number Procedures Code Procedure Name Date Entry Date CPT-94041 XR LUMBAR 4VWS FLEX/EX Medications Administered No information available. Immunizations No information available. Advance Directives There may be information available, but it has not been provided by the sender. Assessments There may be information available, but it has not been provided by the sender. Review of Systems There may be information available, but it has not been provided by the sender. Family History There may be information available, but it has not been provided by the sender. History of Past Illness There may be information available, but it has not been provided by the sender. History of Present Illness There may be information available, but it has not been provided by the sender.
--- OUTSIDE RECORDS SUMMARY | 2018-06-01 03:49 | XMS RPT_ITS ---
:1960 Author Organization [facility] Care Team Providers Name Role Phone JAJA MARSHALL (SOLE LEVELER) Attending Unavailable JAJA MARSHALL (SOLE LEVELER) Referring Unavailable JAJA MARSHALL (SOLE LEVELER) Referring Unavailable RADHA ROJAS Attending Unavailable RADHA ROJAS Referring Unavailable Jw Robison Attending Unavailable Elderbrock, Radha Primary Care Unavailable Luis Angel Arreguin Attending Unavailable Luis Angel Arreguin Referring Unavailable Elderbrock, Radha Primary Care Unavailable Luis Angel Arreguin Attending Unavailable Clarence, Radha Primary Care Unavailable Luis Angel Arreguin Referring Unavailable Luis Angel Arreguin Attending Unavailable Luis Angel Arreguin Referring Unavailable Elderbrock, Radha Primary Care Unavailable Luis Angel Arreguin Attending Unavailable Luis Angel Arreguin Referring Unavailable Elderbrock, Radha Primary Care Unavailable Luis Angel Arreguin Attending Unavailable Luis Angel Arreguin Referring Unavailable Elderbrock, Radha Primary Care Unavailable PROBLEMS PROBLEMS DATE TYPE CONDITION / CODE ATTENDING STATUS SOURCE 08/12/2017 Unknown M54.9 - Jw Robison Active [facility] unspecified / Hospital M54.9(ICD-10) Repository 04/27/2017 Active Diarrhea, NA Active [facility] unspecified / Main [place] R19.7(ICD-10) Repository PROCEDURES PROCEDURES No Procedure Records FoundRESULTS RESULTS OPERATIVE REPORT Observed: 04/08/2018 Status: F Source: EFFIE 8:20 AM [facility] REPOSITORY [facility] Medical Records Department [address] [place] [address] Operative Report 04/08/18 0815 MR#: [id number] Acct: [id number] Name: ZAHRAA JAMES Rep #: [id number] : 1960 57 From: Luis Angel Arreguin MD PCP: Clarence VERA,Radha Status: REG SD Y Location: [place] [address] Problem List (1) Degeneration of intervertebral disc of lumbosacral region Status: Chronic (2) Lumbosacral spondylosis Status: Chronic (3) Spondylosis of lumbosacral region without myelopathy or radiculopathy Status: Chronic Report of Operation Date of Procedure: 04/08/18 Pre-Operative Diagnosis: Lumbosacral spondylosis, lumbosacral degenerative disc disease, lumbar facet arthropathy Post-Operative Diagnosis: Lumbosacral spondylosis, lumbosacral degenerative disc disease, lumbar facet arthropathy Surgery/Procedure Performed:: Left-sided lumbar facet steroid injection L3, L4, L5, S1 Description of Surgical Findings:: PROCEDURE: Left sided lumbar facet steroid injection L3, L4, L5, S1 PREOPERATIVE DIAGNOSIS: Lumbosacral spondylosis, lumbosacral degenerative disc disease, lumbar facet arthropathy POSTOPERATIVE DIAGNOSIS: Lumbosacral spondylosis, lumbosacral degenerative disc disease, lumbar facet arthropathy ANESTHESIA: MAC COMPLICATIONS: None BLOOD LOSS: Minimal PROCEDURE IN DETAIL: History and physical today was reviewed. Risks and benefits of the procedure were explained. The patient understood, agreed to our procedure, and informed consent was obtained. IV inserted per routine protocol. The patient was taken to the operating room, placed in a prone position with a pillow positioned underneath the abdomen. The left side of her lower back was prepped and draped in a sterile fashion using iodine x3. Under fluoroscopy guidance, on AP view, L3 through S1 vertebral bodies were visualized. Skin and subcutaneous tissues were anesthetized with approximately 5 mL of 1% lidocaine using a 25-gauge regular needle. Under direct visualization with fluoroscopy at approximately 25-degree angle, starting on the left L3, ending on the left S1, passing through the L4-L5 using a 22-gauge 5-inch spinal needle, the needle was advanced via the skin. The tip of the needle was maneuvered and directed towards the superior and medial gutter of the transverse process at the vicinity of the medial branch. Once the tip of the needle was in contact with the bone, the needle pulled approximately 2 mm off the bone. After negative aspiration of blood with CSF and confirmation of AP as well as oblique view, a total of 8 mL of preservative-free 0.25% Marcaine with 80 mg of Depo-Medrol was injection in divided doses between those 4 levels. The needles were then removed intact. The patient experienced no signs or symptoms intrathecal, intravascular injection. The patient experienced no paraesthesia. The procedure was completed without any apparent difficult, any complication. The patient appeared to tolerate well. ASSESSMENT AND PLAN: This is a 57-year-old Female with Lumbosacral spondylosis, lumbosacral degenerative disc disease, lumbar facet arthropathy, status post right-sided lumbar facet steroid injection L3 through S1. The patient will continue her current medications. The patient will follow in approximately 2 weeks for possible repeat of the procedure if indicated. 04/08/18 0820 <Electronically signed by Luis Angel Arreguin MD> Date Luis Angel Arreguin MD CC: Luis Angel Arreguin; Radha Rojas MD Signed L/S SPINE MIN 4 Observed: 04/08/2018 Status: F Source: JOSH VIEWS 3:18 AM [facility] REPOSITORY [facility] Imaging Services [facility] [place] [address] L/S Spine Min 4 Views MR#: [id number] Acct: [id number] Name: ZAHRAA JAMES Rep #: [id number] : 1960 F 57 From: Angel Chaudhari MD PCP: Radha Rojas MD Status: [facility] Study: L/S Spine Min 4 Views Date of Exam: 04/08/18 Exam# [id number] Ordering Dr: Luis Angel Arreguin MD PROCEDURE: Left L3-S1 facet joint block. DATE OF EXAMINATION: April 08, 2018. INDICATION: Female, 58 years old. Chronic low back pain. FLUOROSCOPY TIME (if supplied): (0:25) minutes/seconds. For cone down intraoperative views were obtained. Intraoperative fluoroscopy was performed for left L3-S1 facet joint block. RAD/L/S Spine Min 4 Views IMPRESSION: Intraoperative fluoroscopic services provided for left L3- S1 facet joint block. Electronically Signed: Angel Chaudhari MD at 8:26 EST Tel [phone], Service support , CC: Luis Angel Arreguin; Radha Rojas MD Miter Sawyer: Signed OPERATIVE REPORT Observed: 01/21/2018 Status: F Source: EFFIE 12:03 PM [facility] Medical Records Department [address] [place] [address] Operative Report 01/21/18 1200 MR#: [id number] Acct: [id number] Name: ZAHRAA JAMES Rep #: [id number] : 1960 57 From: Luis Angel Arreguin MD PCP: Radha Rojas MD Status: [facility] Y Location: [facility] Problem List (1) Degeneration of intervertebral disc of lumbosacral region Status: Chronic (2) Lumbosacral spondylosis Status: Chronic (3) Spondylosis of lumbosacral region without myelopathy or radiculopathy Status: Chronic Report of Operation Date of Procedure: 01/21/18 Pre-Operative Diagnosis: Lumbosacral spondylosis, lumbosacral degenerative disc disease, lumbar facet arthropathy Post-Operative Diagnosis: Lumbosacral spondylosis, lumbosacral degenerative disc disease, lumbar facet arthropathy Surgery/Procedure Performed:: Left-sided lumbar radiofrequency ablation of the medial branch at L3, L4, L5, S1 Description of Surgical Findings:: PROCEDURE: Left-sided radiofrequency ablation of the medial branch L3, L4, L5, S1 PREOPERATIVE DIAGNOSES: Lumbosacral spondylosis, lumbosacral degenerative disc disease, lumbar facet arthropathy POSTOPERATIVE DIAGNOSES: Lumbosacral spondylosis, lumbosacral degenerative disc disease, lumbar facet arthropathy ANESTHESIA: MAC COMPLICATIONS: None BLOOD LOSS: Minimal PROCEDURE IN DETAIL: History and physical today was reviewed. Risks and benefits of procedure explained. The patient understood, agreed to the procedure and informed consent was obtained. IV inserted per routine protocol. The patient was taken to the operating room, placed in the prone position with a pillow positioned underneath the abdomen. The left side of the lower back was prepped and draped in a sterile fashion using iodine x 3. Under fluoroscopy guidance, on an oblique view, the L3 through S1 vertebral bodies were visualized. The skin and subcutaneous tissue was anesthetized with approximately 10 mL of 1% lidocaine using a 25-gauge regular needle. Under direct visualization with fluoroscopy at approximately 25-degree angle, starting on the left L3, ending on the left S1 passing through the L4-L5 using a 20-gauge 15 cm with a 10 mm curved active tip radiofrequency ablation needle the needle passed through the skin. The tip of the needle was maneuvered and directed towards the superior and medial gutter of the transverse process at the vicinity of the medial branch. Once the tip of the needle was in contact with the bone, the needle pulled approximately 2 mm up the bone. The stylet of each needle was then removed. After negative aspiration of blood with CSF and confirmation of AP as well as oblique view, radiofrequency ablation probe was then inserted at each level. Impedance was then recorded at L3 to be 210, at L4 244, at L5 286, at S1 300 ohm. Motor-evoked potential was then initiated to 1.5 volt without any motor response at each corresponding level. The probe was then removed intact and a total of 6 mL preservative- free 1% lidocaine was injected in divided doses between those 4 levels after negative aspiration of blood with CSF. The radiofrequency ablation probe was then reinserted after confirmation of AP, oblique as well as lateral view. Radiofrequency ablation was then initiated to 80 degrees Celsius for 90 seconds at each level. Once concluded, the probe was then removed intact and a total of 6 mL of preservative-free 0.25% Marcaine with 40 mg Depo-Medrol was injected in divided doses between those 4 levels. The needles were then removed intact. The patient experienced no signs or symptoms of intrathecal, intravascular injection. The patient experienced no paraesthesia. The procedure was completed without any apparent difficulty, any complication. The patient appeared to tolerate well. Sensory as well as motor exam was unchanged from prior to procedure. ASSESSMENT AND PLAN: This is a 57-year-old female with lumbosacral spondylosis, lumbosacral degenerative disc disease, lumbar facet arthropathy, status post left-sided radiofrequency ablation of the medial branch L3 through S1. The patient will continue her current medications. The patient will follow up in approximately 2 weeks for reevaluation. 01/21/18 1203 <Electronically signed by Luis Angel Arreguin MD> Date Luis Angel Arreguin MD CC: Luis Angel Arreguin; Radha Rojas MD Signed L/S SPINE MIN 4 Observed: 01/21/2018 Status: F Source: EFFIE VIEWS 1:32 AM [facility] REPOSITORY [facility] Imaging Services [address] [place] [address] L/S Spine Min 4 Views MR#: [id number] Acct: [id number] Name: ZAHRAA JAMES Rep #: [id number] : 1960 F 57 From: Angel Chaudhari MD PCP: Radha Rojas MD Status: [facility] Study: L/S Spine Min 4 Views Date of Exam: 01/21/18 Exam# [id number] Ordering Dr: Luis Angel Arreguin MD STUDY: X-RAY - LUMBAR SPINE REASON FOR EXAM: Female, 57 years old. Left L3 S1 radiofrequency ablation. TECHNIQUE: 6 coned-down view(s) of the lumbar spine were obtained intraoperatively. 52.7 seconds of fluoroscopy was performed.. COMPARISON: None FINDINGS: Intraoperative imaging provided for left L3 S1 radiofrequency ablation. RAD/L/S Spine Min 4 Views IMPRESSION: Imaging provided for left L3 S1 radiofrequency ablation. Electronically Signed: Angel Chaudhari MD at 14:16 EDT Tel [phone], Service support , CC: Luis Angel Arreguin; Radha Rojas MD Miter Sawyer: Signed OPERATIVE REPORT Observed: 12/10/2017 Status: F Source: EFFIE 10:40 AM [facility] REPOSITORY [facility] Medical Records Department [address] [place] [address] Operative Report 12/10/17 1035 MR#: [id number] Acct: [id number] Name: ZAHRAA JAMES Rep #: [id number] : 1960 57 From: Luis Angel Arreguin MD PCP: Radha Rojas MD Status: [facility] Y Location: [facility] Problem List (1) Spondylosis of lumbosacral region without myelopathy or radiculopathy Status: Chronic (2) Degeneration of intervertebral disc of lumbosacral region Status: Chronic Report of Operation Date of Procedure: 12/10/17 Pre-Operative Diagnosis: Lumbosacral spondylosis, lumbosacral degenerative disc disease, lumbar facet arthropathy Post-Operative Diagnosis: Lumbosacral spondylosis, lumbosacral degenerative disc disease, lumbar facet arthropathy Surgery/Procedure Performed:: Left-sided lumbar facet steroid injection L3, L4, L5, L5, S1 Description of Surgical Findings:: PROCEDURE: Left-sided lumbar facet steroid injection L3, L4, L5, S1 PREOPERATIVE DIAGNOSIS: Lumbosacral spondylosis, lumbosacral degenerative disc disease, and lumbar facet arthropathy POSTOPERATIVE DIAGNOSIS: Lumbosacral spondylosis, lumbosacral degenerative disc disease, and lumbar facet arthropathy ANESTHESIA: MAC COMPLICATIONS: None BLOOD LOSS: Minimal PROCEDURE IN DETAIL: History and physical today was reviewed. Risks and benefits of the procedure were explained. The patient understood, agreed to our procedure, and informed consent was obtained. IV inserted per routine protocol. The patient was taken to the operating room, placed in a prone position with a pillow positioned underneath the abdomen. The right side of his lower back was prepped and draped in a sterile fashion using iodine x3. Under fluoroscopy guidance, on AP view, L3 through S1 vertebral bodies were visualized. Skin and subcutaneous tissues were anesthetized with approximately 5 mL of 1% lidocaine using a 25-gauge regular needle. Under direct visualization with fluoroscopy at approximately 25-degree angle, starting on the left L3, ending on the left S1, passing through the L4-L5 using a 22-gauge 3 1/2-inch spinal needle, the needle was advanced via the skin. The tip of the needle was maneuvered and directed towards the superior and medial gutter of the transverse process at the vicinity of the medial branch. Once the tip of the needle was in contact with the bone, the needle pulled approximately 2 mm off the bone. After negative aspiration of blood with CSF and confirmation of AP as well as oblique view, a total of 8 mL of preservative-free 0.25% Marcaine with 80 mg of Depo-Medrol was injection in divided doses between those 4 levels. The needles were then removed intact. The patient experienced no signs or symptoms intrathecal, intravascular injection. The patient experienced no paraesthesia. The procedure was completed without any apparent difficult, any complication. The patient appeared to tolerate well. ASSESSMENT AND PLAN: This is a 57-year-old Female with Lumbosacral spondylosis, lumbosacral degenerative disc disease, and lumbar facet arthropathy and lumbar facet arthropathy, status post left-sided lumbar facet steroid injection [id number]. The patient will continue her current medications. The patient will follow in approximately 2 weeks for possible repeat of the procedure if indicated. 12/10/17 1040 <Electronically signed by Luis Angel Arreguin MD> Date Luis Angel Arreguin MD CC: Luis Angel Arreguin; Radha Rojas MD Signed L/S SPINE MIN 4 Observed: 12/10/2017 Status: F Source: EFFIE VIEWS 3:02 AM [facility] REPOSITORY [facility] Imaging Services [facility] [place] [address] L/S Spine Min 4 Views MR#: [id number] Acct: [id number] Name: ZAHRAA JAMES Rep #: [id number] : 1960 F 57 From: Shabbir Arauz MD PCP: Radha Rojas MD Status: [facility] Study: L/S Spine Min 4 Views Date of Exam: 12/10/17 Exam# [id number] Ordering Dr: Luis Angel Arreguin MD PROCEDURE: Fluoroscopy for pain management, lumbar facet block L3-S1 DATE OF EXAMINATION: 12/10/2017 INDICATION: Female, 57 years old. Lower back pain. PHYSICIAN: Dr. Arreguin FLUOROSCOPY TIME (if supplied): (0:27) minutes/seconds RADIATION DOSAGE (If Supplied By Facility): 21.27 mGy Images: 4 fluoroscopic spot images. PROCEDURE/TECHNIQUE: Intraoperative imaging provided under direction, supervision and review of the intraoperative physician for left L3-S1 facet joint block. Please see intraoperative note for details. RAD/L/S Spine Min 4 Views IMPRESSION: Fluoroscopic imaging provided for left L3-S1 facet joint block for pain management. Please see intraoperative note for details Electronically Signed: Shabbir Arauz, at 10:03 EDT Tel , Service support , CC: Luis Angel Arreguin; Radha Rojas MD Miter Sawyer: Signed OPERATIVE REPORT Observed: 11/05/2017 Status: F Source: JOSH 11:50 AM [facility] REPOSITORY [facility] Medical Records Department [address] [place] [address] Operative Report 11/05/17 1145 MR#: [id number] Acct: [id number] Name: ZAHRAA JAMES Rep #: [id number] : 1960 57 From: Luis Angel Arreguin MD PCP: Radha Rojas MD Status: [facility] Y Location: [facility] Problem List (1) Lumbosacral spondylosis Status: Chronic (2) Degeneration of intervertebral disc of lumbosacral region Status: Chronic (3) Radiculopathy of lumbosacral region Status: Chronic Report of Operation Date of Procedure: 11/05/17 Pre-Operative Diagnosis: Lumbosacral spondylosis, lumbosacral degenerative disc disease, lumbar facet arthropathy Post-Operative Diagnosis: Lumbosacral spondylosis, lumbosacral degenerative disc disease, lumbar facet arthropathy Surgery/Procedure Performed:: Left-sided lumbar facet steroid injection L3, L4, L5, S1 Description of Surgical Findings:: PROCEDURE: Left-sided lumbar facet steroid injection L3, L4, L5, S1 PREOPERATIVE DIAGNOSIS: Lumbosacral spondylosis, lumbosacral degenerative disc disease, and lumbar facet arthropathy POSTOPERATIVE DIAGNOSIS: Lumbosacral spondylosis, lumbosacral degenerative disc disease, and lumbar facet arthropathy ANESTHESIA: MAC COMPLICATIONS: None BLOOD LOSS: Minimal PROCEDURE IN DETAIL: History and physical today was reviewed. Risks and benefits of the procedure were explained. The patient understood, agreed to our procedure, and informed consent was obtained. IV inserted per routine protocol. The patient was taken to the operating room, placed in a prone position with a pillow positioned underneath the abdomen. The left side of her lower back was prepped and draped in a sterile fashion using iodine x3. Under fluoroscopy guidance, on AP view, L3 through S1 vertebral bodies were visualized. Skin and subcutaneous tissues were anesthetized with approximately 5 mL of 1% lidocaine using a 25-gauge regular needle. Under direct visualization with fluoroscopy at approximately 25-degree angle, starting on the left L3, ending on the left S1, passing through the L4-L5 using a 22-gauge 3 1/2-inch spinal needle, the needle was advanced via the skin. The tip of the needle was maneuvered and directed towards the superior and medial gutter of the transverse process at the vicinity of the medial branch. Once the tip of the needle was in contact with the bone, the needle pulled approximately 2 mm off the bone. After negative aspiration of blood with CSF and confirmation of AP as well as oblique view, a total of 8 mL of preservative-free 0.25% Marcaine with 80 mg of Depo-Medrol was injection in divided doses between those 4 levels. The needles were then removed intact. The patient experienced no signs or symptoms intrathecal, intravascular injection. The patient experienced no paraesthesia. The procedure was completed without any apparent difficult, any complication. The patient appeared to tolerate well. ASSESSMENT AND PLAN: This is a 57-year-old Female with lumbosacral spondylosis, lumbosacral degenerative disc disease, and lumbar facet arthropathy, status post left-sided lumbar facet steroid injection L3 through S1. The patient will continue her current medications. The patient will follow in approximately 2 weeks for possible repeat of the procedure if indicated. 11/05/17 1150 <Electronically signed by Luis Angel Arreguin MD> Date Luis Angel Arreguin MD CC: Luis Angel Arreguin; Radha Rojas MD Signed L/S SPINE MIN 4 Observed: 11/05/2017 Status: F Source: JOSH VIEWS 4:51 AM [facility] REPOSITORY [facility] Imaging Services [address] [place] [address] L/S Spine Min 4 Views MR#: [id number] Acct: [id number] Name: ZAHRAA JAMES Rep #: [id number] : 1960 F 57 From: Angel Chaudhari MD PCP: Radha Rojas MD Status: REG [facility] Study: L/S Spine Min 4 Views Date of Exam: 11/05/17 Exam# [id number] Ordering Dr: Luis Angel Arreguin MD STUDY: LEFT FACET JOINT BLOCK. REASON FOR EXAM: Female, 57 years old. Back pain. FLUOROSCOPY TIME (if supplied): (0:25) minutes/seconds TECHNIQUE: Intraoperative imaging provided for left L3-S1 facet joint block. COMPARISON: None. FINDINGS: Intraoperative imaging provided for left L3-S1 facet joint block. RAD/L/S Spine Min 4 Views IMPRESSION: Imaging provided for left L3-S1 facet joint block. Electronically Signed: Angel Chaudhari MD at 11:20 EDT Tel [phone], Service support , CC: Luis Angel Arreguin; Radha Rojas MD Miter Sawyer: Signed OPERATIVE REPORT Observed: 09/24/2017 Status: F Source: JOSH 3:33 PM [facility] REPOSITORY [facility] Medical Records Department [address] [place] [address] Operative Report 09/24/17 1531 MR#: [id number] Acct: [id number] Name: ZAHRAA JAMES Rep #: [id number] : 1960 57 From: Luis Angel Arreguin MD PCP: Radha Rojas MD Status: REG [facility] Y Location: [place] [address] Problem List (1) Degeneration of intervertebral disc of lumbosacral region Status: Chronic (2) Radiculopathy of lumbosacral region Status: Chronic Report of Operation Date of Procedure: 09/24/17 Pre-Operative Diagnosis: Lumbosacral radiculopathy, lumbosacral degenerative disc disease, lumbosacral spinal stenosis Post-Operative Diagnosis: Lumbosacral radiculopathy, lumbosacral degenerative disc disease, lumbosacral spinal stenosis Surgery/Procedure Performed:: Diagnostic/therapeutic caudal epidural steroid injection Description of Surgical Findings:: PROCEDURE: Diagnostic/therapeutic caudal epidural steroid injection PREOPERATIVE DIAGNOSIS: Lumbosacral radiculopathy, lumbosacral degenerative disc disease, lumbosacral spinal stenosis POSTOPERATIVE DIAGNOSIS: Lumbosacral radiculopathy, lumbosacral degenerative disc disease, lumbosacral spinal stenosis ANESTHESIA: MAC COMPLICATIONS: None BLOOD LOSS: Minimal PROCEDURE IN DETAIL: History and physical today was reviewed. Risks and benefits of the procedure were explained. The patient understood, agreed to our procedure, and informed consent was obtained. IV inserted per routine protocol. The patient was taken to the operating room, placed in a prone position with a pillow positioned underneath the abdomen. The lower back and tailbone area was prepped and draped in a sterile fashion using iodine 3 under fluoroscopy guidance on the lateral view the caudal space was identified the skin and subcutaneous tissue and size approximately 3 cc of 1% lidocaine using a 25-gauge regular needle under direct visualization fluoroscopy using the lateral approach using a 22-gauge 3-1/2 inch spinal needle the needle was advanced via the skin through the sacral hiatus, tip of the needle passed through the sacrococcygeal ligament advanced approximately S4 area after negative aspiration for blood or CSF a total of 3 cc of contrast were injected to confirm correct placement of the needle as well as cephalad spread the spread was followed to approximately L5 area after confirmation AP as well as lateral view repeated negative aspiration a total of 15 cc of preservative-free 0.125% Marcaine with 80 mg of the portal was injected easily. The needles were then removed intact. The patient experienced no signs or symptoms intrathecal, intravascular injection. The patient experienced no paraesthesia. The procedure was completed without any apparent difficult, any complication. The patient appeared to tolerate well. ASSESSMENT AND PLAN: This is a 57-year-old female with lumbosacral radiculopathy, lumbosacral degenerative disc disease, lumbosacral spinal stenosis status post diagnostic/therapeutic caudal epidural steroid injection. The patient will continue her current medications. The patient will follow in approximately 2 weeks for possible repeat of the procedure if indicated. 09/24/17 1533 <Electronically signed by Luis Angel Arreguin MD> Date Luis Angel Arreguin MD CC: Luis Angel Arreguin; Radha Rojas MD Signed FLUOR GUIDANCE FOR Observed: 09/24/2017 Status: F Source: [facility]IE SPINE INJ 2:37 AM [facility] REPOSITORY [facility] Imaging Services [address] [place] [id number] Fluor Guidance for Spine Inj MR#: [id number] Acct: [id number] Name: ZAHRAA JAMES Rep #: [id number] : 1960 F 57 From: Angel Chaudhari MD PCP: Radha Rojas MD Status: REG [facility] Study: Fluor Guidance for Spine Inj Date of Exam: 09/24/17 Exam# [id number] Ordering Dr: Luis Angel Arreguin MD PROCEDURE: Caudal block. DATE OF EXAMINATION: September 24, 2017. INDICATION: Female, 57 years old. Chronic low back pain. FLUOROSCOPY TIME (if supplied): (0:20) minutes/seconds Intraoperative imaging provided for caudal block. RAD/Fluor Guidance for Spine Inj IMPRESSION: Intraoperative imaging provided for caudal block. Electronically Signed: Angel Chaudhari MD at 15:36 EDT Tel [phone], Service support , CC: Luis Angel Arreguin; Radha Rojas MD Miter Sawyer: Signed EMERGENCY DEPARTMENT Observed: 08/12/2017 Status: F Source: EFFIE SUMMARY 3:38 PM [facility] REPOSITORY [facility] Medical Records Department [address] [place] [address] Emergency Department Summary 08/11/17 1852 MR#: [id number] Acct: [id number] Name: ZAHRAA JAMES Rep #: [id number] : 1960 57 From: Jw Robison DO PCP: Radha Rojas MD Status: DEP ER - ER Visit Summary Date of Service: 08/11/17 Chief Complaint: Back pain History of Present Illness: The patient is a 57 F who states that she is having a flare of her chronic back pain. The patient states that she has recently had an MRI (showed some disc disease) and is seeing Dr. Scruggs at the [facility] for spine surgery. She was referred back to [facility] [place] to pain management for injections. She has been taking some anti-inflammatories and gabapentin for other nerve pain. She states she is not sure what happened today but she is having increasing pain in the left buttock. No bowel or bladder dysfunction. She has been able to ambulate. No muscle weakness. No change in sensation. No fevers. No history of IV drug use. No rashes. Physical Examination: Afebrile vital signs are stable Gen: Well-nourished well-developed obese Head: Normocephalic atraumatic Eyes: Perrl EOMI ENT: TMs clear no rhinorrhea moist mucous membranes Neck: Supple no lymphadenopathy no JVD nontender CVS: Regular rate rhythm no murmurs normal S1-S2 Respiratory: No distress clear to auscultation bilaterally chest nontender Abdomen: Soft nontender nondistended normal bowel sounds no masses Back: Her to palpation in the left buttock and lower left paraspinal lumbar musculature Extremity: Nontender no edema Skin: Normal color no rash Neuro: alert orientated 3 CN II-XII intact normal strength sensation reflexes gait cerebellar Psych: Normal affect normal mood Emergency Department Course and Treatment: Oars report was performed. It has been many months since the patient received a prescription for narcotic and then only for a few pills. Patient will receive a dose of morphine here and I will write for a couple days worth of [place]. She will follow-up with her primary care physician. Impression:. Acute on chronic low back pain This note was generated with [facility] dictation software. It may contain incorrect words, spelling, and punctuation that were not noted in review of the chart prior to signing ED Disposition - Plan for ED Patient: Disposition: Home or Assisted Living Chief Complaint: Back Instructions: ED Spasm Back No Trauma Prescriptions: Hydrocodone Bitart/Apap 5-325 [[place] 5/325] 1 tab PO Q4H PRN PRN 4 Days #20 tab PRN Reason: Pain Referrals: Radha Rojas MD [STAFF PHYSICIAN] - As soon as possible What to do if you have Problems For any increased pain, shortness of breath, bleeding, nausea or vomiting, chest pain, or any unexpected problems, contact your Primary Care Provider. Call [facility] ([phone]) or report to the closest Emergency Room. Call 911 if necessary. 08/12/17 1538 <Electronically signed by Jw Robison DO> Date Jw Robison DO Cosigner Signature (If Indicated): Date CC: Radha Rojas MD CNPTOUTREACH Observed: 08/07/2017 Status: COMPLETED Source: [facility]ANN 12:00 AM [facility] REPOSITORY Patient Outreach (FAMPST) ZAHRAA JAMES ([id number]) 1960 F IPA Date Time Provider Department 08/07/17 RADHA ROJAS FAMPST During your visit today, we recorded the following information about you: Allergies As of Date: 08/07/2017 Noted Allergy Reaction FLOXIN (OFLOXACIN) 06/04/2012 11 - Vomiting Comments: rash SULFA (SULFONAMIDE ANTIBIOTICS) 06/04/2012 12 - Shortness of Breath Comments: Unable to breath Date Reviewed: 05/22/2017 Reviewed by: Arielle Clark Ma - Fully Assessed Visit Diagnosis:Medication management [Z79.899] Order(s):HGB A1C [[id number]] Order #: [id number] FUTURE Prescriptions as of 08/07/2017 Sig: TRAZODONE 100 MG TABLET TAKE ONE AND ONE-HALF TABLETS* DULOXETINE 60 MG CAPSULE,SARTHAK* TAKE 1 CAPSULE DAILY BUPROPION HCL SR 150 MG TABLE* Take 1 tablet by mouth twice * X GABAPENTIN 600 MG TABLET Take 1 tablet by mouth daily * DICYCLOMINE 10 MG CAPSULE Take 1 capsule by mouth befor* TOPIRAMATE 25 MG TABLET Take 1 tablet by mouth once d* LEVOTHYROXINE 125 MCG TABLET Take 1 tablet by mouth once d* OMEPRAZOLE 20 MG CAPSULE,SARTHAK* TAKE 1 CAPSULE EVERY MORNING * X HYDROCHLOROTHIAZIDE 25 MG TAB* TAKE 1 TABLET DAILY (WATER/BL* X LISINOPRIL 5 MG TABLET TAKE 1 TABLET DAILY FOR BLOOD* ONDANSETRON 4 MG DISINTEGRATI* GAVILYTE-C 240 GRAM-22.72 GRA* BIPAP BiPAP @ 20/14 cm of water wit* Problem List As Of Date 08/07/2017 Noted Resolved Bipolar affective disorder [F31.9] INVALID FOR* More... Restless legs syndrome [G25.81] INVALID FOR* More... Insomnia [G47.00] INVALID FOR* More... Chronic pain [G89.29] INVALID FOR* More... AMBER (obstructive sleep apnea) [G47.33] INVALID FOR* More... COPD (chronic obstructive pulmonary disease) [J*INVALID FOR* HLD (hyperlipidemia) [E78.5] INVALID FOR* More... HTN (hypertension) [I10] INVALID FOR* History of Donovan thyroiditis [Z86.39] INVALID FOR* Hypothyroidism [E03.9] INVALID FOR* More... 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 Depression - Stable and doing very well. Feels very peppy and able to get up and go. Currently taking Wellbutrin 150 mg 1 tab po bid and Cymbalta 60 mg once daily. Thyroid - States that her hair is not falling out as bad as what it was and she feels that she has much more energy then what she did previously. Currently taking Levothyroxine 125 mcg once daily. HTN - Denies checking BP at home even though she has the equipment to check it, unsure how to use it. Denies chest pain, sob or dizziness. Currently taking HCTZ 25 mg once daily and Lisinopril 5 mg once daily. Pain - Doing ok but does have increased left hip pain. Currently taking Gabapentin 600 mg once at bedtime. Sleep apnea - Doing well on bi-pap machine. Takes Trazodone 100 mg 1.5 tabs at bedtime Smoking - Has cut down on smoking due to not feeling well, but loves smoking so will probably increase back up. Rolls her own cigarettes. Flu - Recently getting over flu. States that her ears feel funny. Past medical history, appointments, medications, allergies reviewed. Previous Medical History PAST MEDICAL HISTORY Diagnosis Date - COPD (chronic obstructive pulmonary disease) (HCC) 03/10/2013 - Depression - Diabetes (HCC) - HTN (hypertension) 09/25/2013 - Hx of cardiac cath 02/2013 negative - Hypothyroidism 03/30/2014 - Obstructive sleep apnea Previous Surgical History PAST SURGICAL HISTORY Procedure Laterality Date - CHOLECYSTECTOMY - NECK SURGERY HX - TOTAL KNEE REPLACEMENT erich Family History FAMILY HISTORY Problem Relation Age of Onset - Cancer Father esophagus - COPD Father - Psychiatry Father Manic depressive disorder - Arthritis Father - Cancer Paternal Aunt esophagus - Cancer Paternal Uncle esophagus - Cancer Paternal Grandfather esophagus - COPD Paternal Grandfather - COPD Paternal Aunt - COPD Paternal Uncle - Thyroid Mother - Psychiatry Sister Manic depressive disorder - Psychiatry Brother manic depressive disorder - Psychiatry Daughter manic depressive disorder - Psychiatry Son Manic depressive disorder - Heart Paternal Grandmother - Arthritis Paternal Aunt - Arthritis Paternal Uncle Patient Allergies ALLERGIES Allergen Reactions - Floxin [Ofloxacin] Vomiting rash - Sulfa (Sulfonamide * Shortness of Breath Unable to breath Current Medications Current Outpatient Prescriptions on File Prior to Visit: gabapentin (NEURONTIN) 600 mg tablet Take 1 tablet by mouth daily at bedtime for 180 days. (nerve pain) buPROPion SR (WELLBUTRIN SR) 150 mg 12 hr tablet Take 1 tablet by mouth twice daily. dicyclomine (BENTYL) 10 mg capsule Take 1 capsule by mouth before meals and at bedtime. topiramate (TOPAMAX) 25 mg tablet Take 1 tablet by mouth once daily. levothyroxine (SYNTHROID) 125 mcg tablet Take 1 tablet by mouth once daily. omeprazole (PRILOSEC) 20 mg capsule TAKE 1 CAPSULE EVERY MORNING AT LEAST 30 MINUTES BEFORE BREAKFAST hydroCHLOROthiazide (HYDRODIURIL, ESIDRIX) 25 mg tablet TAKE 1 TABLET DAILY (WATER/BLOOD PRESSURE PILL) lisinopril (ZESTRIL, PRINIVIL) 5 mg tablet TAKE 1 TABLET DAILY FOR BLOOD PRESSURE GAVILYTE-C 240-22.72-6.72 -5.84 gram solution traZODone (DESYREL) 100 mg tablet Take 1.5 tablets by mouth daily at bedtime. DULoxetine (CYMBALTA) 60 mg capsule Take 1 capsule by mouth once daily. BIPAP BiPAP @ 20/14 cm of water with humidification. Mask (per patient preference) optional chin strap (if indicated), filters, tubing, humidifier and lifetime supplies. Dx. AMBER 327.23 ondansetron orally disintegrating (ZOFRAN ODT) 4 mg disintegrating tablet No current facility-administered medications on file prior to visit. Social History Social History Marital status: Unknown Spouse name: Years of education: Number of children: Social History Main Topics Smoking status: Current Every Day Smoker Packs/day: 0.25 Years: 30.00 Types: Cigarettes Smokeless status: Never Used Alcohol use: No Drug use: No EXAM: BP 124/82 (BP Site: Left Arm, BP Position: Sitting, BP Cuff Size: Regular Adult) Pulse 96 Resp 16 Wt (!) 137.3 kg (302 lb 12.8 oz) BMI 53.64 kg/m2 General Appearance: Well appearing, alert, in no acute distress, well-hydrated, well nourished., Obese. Ears: External ears normal, canals slightly congested. Lungs: Lungs clear to auscultation. Wheezing, rhonchi, rales. Heart: RRR without murmur, gallop, or rubs. No ectopy. Extremities: Left hip, bursitis. Health Maintenance List PAP EVERY 5 YEARS due on 05/07/2012 HPV EVERY 5 YEARS due on 05/07/2012 MAMMOGRAM due on 07/12/2017 DIABETES SCREEN due on 04/27/2020 LIPID SCREEN due on 07/12/2021 COLORECTAL CANCER SCREENING,SEE MODIFIER due on 11/03/2023 TETANUS due on 01/15/2024 ONE PNEUMOVAX PRIOR TO AGE 65 Completed INFLUENZA Completed HEPATITIS C SCREENING Completed Data reviewed Appointment on 04/27/2017 Specimen Request Date: 04/27/2017 Value: Specimen received in a Culture and Susceptibility Kit. Campylobacter Date: 04/27/2017 Value: Negative for Campylobacter species by EIA. Shiga Toxin Date: 04/27/2017 Value: Negative for Shiga toxin 1 and 2 by EIA Culture Date: 04/27/2017 Value: Negative for Salmonella and Shigella sp. Culture Date: 04/27/2017 Value: Negative for Escherichia coli O157:H7 Appointment on 04/27/2017 WBC Value: 7.50(k/uL) Date: 04/27/2017 RBC Value: 4.90(m/uL) Date: 04/27/2017 Hemoglobin Value: 15.5(g/dL) Date: 04/27/2017 Hematocrit Value: 47.9(%)* Date: 04/27/2017 MCV Value: 97.8(fL) Date: 04/27/2017 MCH Value: 31.6(pG) Date: 04/27/2017 MCHC Value: 32.4(g/dL) Date: 04/27/2017 RDW-CV Value: 12.4(%) Date: 04/27/2017 Platelet Count Value: 210(k/uL) Date: 04/27/2017 MPV Value: 10.9(fL) Date: 04/27/2017 Neut% Value: 72.9(%) Date: 04/27/2017 Abs Neut (ANC) Value: 5.47(k/uL) Date: 04/27/2017 Lymph% Value: 17.5(%) Date: 04/27/2017 Abs Lymph Value: 1.31(k/uL) Date: 04/27/2017 [place]% Value: 6.0(%) Date: 04/27/2017 Abs [place] Value: 0.45(k/uL) Date: 04/27/2017 Eosin% Value: 3.1(%) Date: 04/27/2017 Abs Eosin Value: 0.23(k/uL) Date: 04/27/2017 Baso% Value: 0.5(%) Date: 04/27/2017 Abs Baso Value: 0.04(k/uL) Date: 04/27/2017 Nucleated Reds Value: 0.0(/100 WBC) Date: 04/27/2017 Absolute nRBC Value: <0.01(k/uL) Date: 04/27/2017 Diff Type Value: Auto Diff Date: 04/27/2017 Protein, Total Value: 6.6(g/dL) Date: 04/27/2017 Albumin Value: 4.2(g/dL) Date: 04/27/2017 Calcium Value: 8.8(mg/dL) Date: 04/27/2017 Bilirubin, Total Value: 0.4(mg/dL) Date: 04/27/2017 Alkaline Phosphatase Value: 59(U/L) Date: 04/27/2017 AST Value: 23(U/L) Date: 04/27/2017 Glucose Value: 109(mg/dL)* Date: 04/27/2017 BUN Value: 12(mg/dL) Date: 04/27/2017 Creatinine Value: 1.06(mg/dL)* Date: 04/27/2017 Sodium Value: 138(mmol/L) Date: 04/27/2017 Potassium Value: 3.5(mmol/L)* Date: 04/27/2017 Chloride Value: 99(mmol/L) Date: 04/27/2017 CO2 Value: 26(mmol/L) Date: 04/27/2017 Anion Gap Value: 13(mmol/L) Date: 04/27/2017 ALT Value: 26(U/L) Date: 04/27/2017 eGFR- Value: >60 Date: 04/27/2017 eGFR-All Other Races Value: 54(.) Date: 04/27/2017 Office Visit on 04/27/2017 C. difficile PCR Date: 04/27/2017 Value: Negative for C. difficile toxin by PCR Specimen Request Date: 04/27/2017 Value: Specimen received in Ova and Parasite Kit. Culture Date: 04/27/2017 Value: Negative for Giardia lamblia and Cryptosporidium species by EIA. ASSESSMENT/PLAN: 1. Bipolar affective disorder in remission (HCC) - ICD9: 296.80, ICD10: F31.70 (primary diagnosis) Continue current medications. 2. Restless legs syndrome - ICD9: 333.94, ICD10: G25.81 3. Insomnia, unspecified type - ICD9: 780.52, ICD10: G47.00 4. Chronic pain syndrome - ICD9: 338.4, ICD10: G89.4 5. AMBER (obstructive sleep apnea) - ICD9: 327.23, ICD10: G47.33 6. Hypertension, unspecified type - ICD9: 401.9, ICD10: I10 - good control - Continue current medication(s) - Recommended regular aerobic exercise. - Goal of BP <140/90 7. Hyperlipidemia, unspecified hyperlipidemia type - ICD9: 272.4, ICD10: E78.5 - good control - Continue current medication. 8. Pain of left hip joint - ICD9: 719.45, ICD10: M25.552 Heat 9. Acquired hypothyroidism - ICD9: 244.9, ICD10: E03.9 - continue current dose of Synthroid Follow up in 3 months Radha Rojas MD The documentation for this note was completed by Arielle Clark Ma acting as scribe for Radha Rojas MD. May 22, 2017 10:27 AM. CNOV Observed: 05/22/2017 Status: COMPLETED Source: [facility]ANN 10:00 AM [facility] REPOSITORY Office Visit (FAMPWS) ZAHRAA JAMES ([id number]) 1960 F Date Time Provider Department 05/22/17 10:00 AM [facility] During your visit today, we recorded the following information about you: Pulse Respiration Blood pressure Weight 96/minute 16/minute 124/82 137.3 kg Radha Rojas MD 05/22/2017 6:04 PM Signed Chief Complaint Patient presents with: F/U 1 month: Depression, Thyroid, HTN and Pain HPI Zahraa James is a 57 year old female who presents here today for a 1 mo f/u. Depression - Stable and doing very well. Feels very peppy and able to get up and go. Currently taking Wellbutrin 150 mg 1 tab po bid and Cymbalta 60 mg once daily. Thyroid - States that her hair is not falling out as bad as what it was and she feels that she has much more energy then what she did previously. Currently taking Levothyroxine 125 mcg once daily. HTN - Denies checking BP at home even though she has the equipment to check it, unsure how to use it. Denies chest pain, sob or dizziness. Currently taking HCTZ 25 mg once daily and Lisinopril 5 mg once daily. Pain - Doing ok but does have increased left hip pain. Currently taking Gabapentin 600 mg once at bedtime. Sleep apnea - Doing well on bi-pap machine. Takes Trazodone 100 mg 1.5 tabs at bedtime Smoking - Has cut down on smoking due to not feeling well, but loves smoking so will probably increase back up. Rolls her own cigarettes. Flu - Recently getting over flu. States that her ears feel funny. Past medical history, appointments, medications, allergies reviewed. Previous Medical History PAST MEDICAL HISTORY Diagnosis Date - COPD (chronic obstructive pulmonary disease) (HCC) 03/10/2013 - Depression - Diabetes (HCC) - HTN (hypertension) 09/25/2013 - Hx of cardiac cath 02/2013 negative - Hypothyroidism 03/30/2014 - Obstructive sleep apnea Previous Surgical History PAST SURGICAL HISTORY Procedure Laterality Date - CHOLECYSTECTOMY - NECK SURGERY HX - TOTAL KNEE REPLACEMENT erich Family History FAMILY HISTORY Problem Relation Age of Onset - Cancer Father esophagus - COPD Father - Psychiatry Father Manic depressive disorder - Arthritis Father - Cancer Paternal Aunt esophagus - Cancer Paternal Uncle esophagus - Cancer Paternal Grandfather esophagus - COPD Paternal Grandfather - COPD Paternal Aunt - COPD Paternal Uncle - Thyroid Mother - Psychiatry Sister Manic depressive disorder - Psychiatry Brother manic depressive disorder - Psychiatry Daughter manic depressive disorder - Psychiatry Son Manic depressive disorder - Heart Paternal Grandmother - Arthritis Paternal Aunt - Arthritis Paternal Uncle Patient Allergies ALLERGIES Allergen Reactions - Floxin [Ofloxacin] Vomiting rash - Sulfa (Sulfonamide * Shortness of Breath Unable to breath Current Medications Current Outpatient Prescriptions on File Prior to Visit: gabapentin (NEURONTIN) 600 mg tablet Take 1 tablet by mouth daily at bedtime for 180 days. (nerve pain) buPROPion SR (WELLBUTRIN SR) 150 mg 12 hr tablet Take 1 tablet by mouth twice daily. dicyclomine (BENTYL) 10 mg capsule Take 1 capsule by mouth before meals and at bedtime. topiramate (TOPAMAX) 25 mg tablet Take 1 tablet by mouth once daily. levothyroxine (SYNTHROID) 125 mcg tablet Take 1 tablet by mouth once daily. omeprazole (PRILOSEC) 20 mg capsule TAKE 1 CAPSULE EVERY MORNING AT LEAST 30 MINUTES BEFORE BREAKFAST hydroCHLOROthiazide (HYDRODIURIL, ESIDRIX) 25 mg tablet TAKE 1 TABLET DAILY (WATER/BLOOD PRESSURE PILL) lisinopril (ZESTRIL, PRINIVIL) 5 mg tablet TAKE 1 TABLET DAILY FOR BLOOD PRESSURE GAVILYTE-C 240-22.72-6.72 -5.84 gram solution traZODone (DESYREL) 100 mg tablet Take 1.5 tablets by mouth daily at bedtime. DULoxetine (CYMBALTA) 60 mg capsule Take 1 capsule by mouth once daily. BIPAP BiPAP @ 20/14 cm of water with humidification. Mask (per patient preference) optional chin strap (if indicated), filters, tubing, humidifier and lifetime supplies. Dx. AMBER 327.23 ondansetron orally disintegrating (ZOFRAN ODT) 4 mg disintegrating tablet No current facility-administered medications on file prior to visit. Social History Social History Marital status: Unknown Spouse name: Years of education: Number of children: Social History Main Topics Smoking status: Current Every Day Smoker Packs/day: 0.25 Years: 30.00 Types: Cigarettes Smokeless status: Never Used Alcohol use: No Drug use: No EXAM: BP 124/82 (BP Site: Left Arm, BP Position: Sitting, BP Cuff Size: Regular Adult) Pulse 96 Resp 16 Wt (!) 137.3 kg (302 lb 12.8 oz) BMI 53.64 kg/m2 General Appearance: Well appearing, alert, in no acute distress, well-hydrated, well nourished., Obese. Ears: External ears normal, canals slightly congested. Lungs: Lungs clear to auscultation. Wheezing, rhonchi, rales. Heart: RRR without murmur, gallop, or rubs. No ectopy. Extremities: Left hip, bursitis. Health Maintenance List PAP EVERY 5 YEARS due on 05/07/2012 HPV EVERY 5 YEARS due on 05/07/2012 MAMMOGRAM due on 07/12/2017 DIABETES SCREEN due on 04/27/2020 LIPID SCREEN due on 07/12/2021 COLORECTAL CANCER SCREENING,SEE MODIFIER due on 11/03/2023 TETANUS due on 01/15/2024 ONE PNEUMOVAX PRIOR TO AGE 65 Completed INFLUENZA Completed HEPATITIS C SCREENING Completed Data reviewed Appointment on 04/27/2017 Specimen Request Date: 04/27/2017 Value: Specimen received in a Culture and Susceptibility Kit. Campylobacter Date: 04/27/2017 Value: Negative for Campylobacter species by EIA. Shiga Toxin Date: 04/27/2017 Value: Negative for Shiga toxin 1 and 2 by EIA Culture Date: 04/27/2017 Value: Negative for Salmonella and Shigella sp. Culture Date: 04/27/2017 Value: Negative for Escherichia coli O157:H7 Appointment on 04/27/2017 WBC Value: 7.50(k/uL) Date: 04/27/2017 RBC Value: 4.90(m/uL) Date: 04/27/2017 Hemoglobin Value: 15.5(g/dL) Date: 04/27/2017 Hematocrit Value: 47.9(%)* Date: 04/27/2017 MCV Value: 97.8(fL) Date: 04/27/2017 MCH Value: 31.6(pG) Date: 04/27/2017 MCHC Value: 32.4(g/dL) Date: 04/27/2017 RDW-CV Value: 12.4(%) Date: 04/27/2017 Platelet Count Value: 210(k/uL) Date: 04/27/2017 MPV Value: 10.9(fL) Date: 04/27/2017 Neut% Value: 72.9(%) Date: 04/27/2017 Abs Neut (ANC) Value: 5.47(k/uL) Date: 04/27/2017 Lymph% Value: 17.5(%) Date: 04/27/2017 Abs Lymph Value: 1.31(k/uL) Date: 04/27/2017 [place]% Value: 6.0(%) Date: 04/27/2017 Abs [place] Value: 0.45(k/uL) Date: 04/27/2017 Eosin% Value: 3.1(%) Date: 04/27/2017 Abs Eosin Value: 0.23(k/uL) Date: 04/27/2017 Baso% Value: 0.5(%) Date: 04/27/2017 Abs Baso Value: 0.04(k/uL) Date: 04/27/2017 Nucleated Reds Value: 0.0(/100 WBC) Date: 04/27/2017 Absolute nRBC Value: ANDlt;0.01(k/uL) Date: 04/27/2017 Diff Type Value: Auto Diff Date: 04/27/2017 Protein, Total Value: 6.6(g/dL) Date: 04/27/2017 Albumin Value: 4.2(g/dL) Date: 04/27/2017 Calcium Value: 8.8(mg/dL) Date: 04/27/2017 Bilirubin, Total Value: 0.4(mg/dL) Date: 04/27/2017 Alkaline Phosphatase Value: 59(U/L) Date: 04/27/2017 AST Value: 23(U/L) Date: 04/27/2017 Glucose Value: 109(mg/dL)* Date: 04/27/2017 BUN Value: 12(mg/dL) Date: 04/27/2017 Creatinine Value: 1.06(mg/dL)* Date: 04/27/2017 Sodium Value: 138(mmol/L) Date: 04/27/2017 Potassium Value: 3.5(mmol/L)* Date: 04/27/2017 Chloride Value: 99(mmol/L) Date: 04/27/2017 CO2 Value: 26(mmol/L) Date: 04/27/2017 Anion Gap Value: 13(mmol/L) Date: 04/27/2017 ALT Value: 26(U/L) Date: 04/27/2017 eGFR- Value: ANDgt;60 Date: 04/27/2017 eGFR-All Other Races Value: 54(.) Date: 04/27/2017 Office Visit on 04/27/2017 C. difficile PCR Date: 04/27/2017 Value: Negative for C. difficile toxin by PCR Specimen Request Date: 04/27/2017 Value: Specimen received in Ova and Parasite Kit. Culture Date: 04/27/2017 Value: Negative for Giardia lamblia and Cryptosporidium species by EIA. ASSESSMENT/PLAN: 1. Bipolar affective disorder in remission (HCC) - ICD9: 296.80, ICD10: F31.70 (primary diagnosis) Continue current medications. 2. Restless legs syndrome - ICD9: 333.94, ICD10: G25.81 3. Insomnia, unspecified type - ICD9: 780.52, ICD10: G47.00 4. Chronic pain syndrome - ICD9: 338.4, ICD10: G89.4 5. AMBER (obstructive sleep apnea) - ICD9: 327.23, ICD10: G47.33 6. Hypertension, unspecified type - ICD9: 401.9, ICD10: I10 - good control - Continue current medication(s) - Recommended regular aerobic exercise. - Goal of BP ANDlt;140/90 7. Hyperlipidemia, unspecified hyperlipidemia type - ICD9: 272.4, ICD10: E78.5 - good control - Continue current medication. 8. Pain of left hip joint - ICD9: 719.45, ICD10: M25.552 Heat 9. Acquired hypothyroidism - ICD9: 244.9, ICD10: E03.9 - continue current dose of Synthroid Follow up in 3 months Radha Rojas MD The documentation for this note was completed by Arielle Clark Ma acting as scribe for Radha Rojas MD. May 22, 2017 10:27 AM. Referring Provider: RADHA ROJAS [[id number]] Allergies As of Date: 05/22/2017 Noted Allergy Reaction FLOXIN (OFLOXACIN) 06/04/2012 11 - Vomiting Comments: rash SULFA (SULFONAMIDE ANTIBIOTICS) 06/04/2012 12 - Shortness of Breath Comments: Unable to breath Date Reviewed: 05/22/2017 Reviewed by: Arielle Clark Ma - Fully Assessed Reason for Visit: F/U 1 month [1175] Cmt: Depression, Thyroid, HTN and Pain Primary Visit Diagnosis:Bipolar affective disorder in remission (HCC) [F31.70] Other Visit Diagnoses:Restless legs syndrome [G25.81] Insomnia, unspecified type [G47.00] Chronic pain syndrome [G89.4] AMBER (obstructive sleep apnea) [G47.33] Hypertension, unspecified type [I10] Hyperlipidemia, unspecified hyperlipidemia type [E78.5] Pain of left hip joint [M25.552] Acquired hypothyroidism [E03.9] Order(s):TSH BLD [SQTSH] Order #: [id number] FUTURE COMP METABOLIC PANEL [SQCMP] Order #: [id number] FUTURE LIPID PANEL BASIC [SQLIPB] Order #: [id number] FUTURE T4/FTI/T4U [OMI7MOL] Order #: [id number] FUTURE Prescriptions as of 05/22/2017 Sig: GABAPENTIN 600 MG TABLET Take 1 tablet by mouth daily * BUPROPION HCL SR 150 MG TABLE* Take 1 tablet by mouth twice * DICYCLOMINE 10 MG CAPSULE Take 1 capsule by mouth befor* TOPIRAMATE 25 MG TABLET Take 1 tablet by mouth once d* LEVOTHYROXINE 125 MCG TABLET Take 1 tablet by mouth once d* OMEPRAZOLE 20 MG CAPSULE,SARTHAK* TAKE 1 CAPSULE EVERY MORNING * HYDROCHLOROTHIAZIDE 25 MG TAB* TAKE 1 TABLET DAILY (WATER/BL* LISINOPRIL 5 MG TABLET TAKE 1 TABLET DAILY FOR BLOOD* GAVILYTE-C 240 GRAM-22.72 GRA* TRAZODONE 100 MG TABLET Take 1.5 tablets by mouth preston* DULOXETINE 60 MG CAPSULE,SARTHAK* Take 1 capsule by mouth once * BIPAP BiPAP @ 20/14 cm of water wit* ONDANSETRON 4 MG DISINTEGRATI* Problem List As Of Date 05/22/2017 Noted Resolved Bipolar affective disorder [F31.9] INVALID FOR* More... Restless legs syndrome [G25.81] INVALID FOR* More... Insomnia [G47.00] INVALID FOR* More... Chronic pain [G89.29] INVALID FOR* More... AMBER (obstructive sleep apnea) [G47.33] INVALID FOR* More... COPD (chronic obstructive pulmonary disease) [J*INVALID FOR* HLD (hyperlipidemia) [E78.5] INVALID FOR* More... HTN (hypertension) [I10] INVALID FOR* History of Donovan thyroiditis [Z86.39] INVALID FOR* Hypothyroidism [E03.9] INVALID FOR* More... 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 Disc: Course of therapy completed Disposition: Return in about 3 months (around 08/20/2017). Follow-up and Disposition History Recorded Encounter Status:Closed by RADHA ROJAS MD on 05/22/17 OBSOLETE Observed: 05/14/2017 Status: COMPLETED Source: [facility] 12:00 AM [facility] REPOSITORY Refill (FAMPWS) ZAHRAA JAMES ([id number]) 1960 F Date Time Provider Department 05/14/17 RADHA ROJAS During your visit today, we recorded the following information about you: Arielle Clark Ma 05/14/2017 11:22 AM Signed Received refill request from [facility]. Arielle Marshall CNP, CNP 05/14/2017 11:35 AM Signed [facility] website checked and validated. All prescriptions have been APPROPRIATELY filled. No suspicious activity was identified.- 05/14/2017 by Jaja Marshall CNP The following approved medication requests have been transmitted electronically. Signed Prescriptions Disp Refills gabapentin (NEURONTIN) 600 mg tablet 90 tablet 1 Sig: Take 1 tablet by mouth daily at bedtime for 180 days. (nerve pain) ANDREW: No Authorizing Provider: JAJA MARSHALL) buPROPion SR (WELLBUTRIN SR) 150 mg 12 hr tablet 180 tablet 3 Sig: Take 1 tablet by mouth twice daily. ANDREW: No Authorizing Provider: JAJA MARSHALL) Jaja Marshall CNP Allergies As of Date: 05/14/2017 Noted Allergy Reaction FLOXIN (OFLOXACIN) 06/04/2012 11 - Vomiting Comments: rash SULFA (SULFONAMIDE ANTIBIOTICS) 06/04/2012 12 - Shortness of Breath Comments: Unable to breath Date Reviewed: 04/27/2017 Reviewed by: Jaja Castellanos) RUPAL Marshall - Fully Assessed Reason for Visit: Refill Request [94] Order(s):gabapentin (NEURONTIN) 600 mg tabletTake 1 tablet by mouth daily at bedtime for 180 days. (nerve pain)Disp: 90 tabletRfl: 1 buPROPion SR (WELLBUTRIN SR) 150 mg 12 hr tabletTake 1 tablet by mouth twice daily.Disp: 180 tabletRfl: 3 Prescriptions as of 05/14/2017 Sig: GABAPENTIN 600 MG TABLET Take 1 tablet by mouth daily * BUPROPION HCL SR 150 MG TABLE* Take 1 tablet by mouth twice * POTASSIUM CHLORIDE ER 20 MEQ * Take 1 tablet by mouth twice * DICYCLOMINE 10 MG CAPSULE Take 1 capsule by mouth befor* TOPIRAMATE 25 MG TABLET Take 1 tablet by mouth once d* LEVOTHYROXINE 125 MCG TABLET Take 1 tablet by mouth once d* OMEPRAZOLE 20 MG CAPSULE,SARTHAK* TAKE 1 CAPSULE EVERY MORNING * HYDROCHLOROTHIAZIDE 25 MG TAB* TAKE 1 TABLET DAILY (WATER/BL* LISINOPRIL 5 MG TABLET TAKE 1 TABLET DAILY FOR BLOOD* ONDANSETRON 4 MG DISINTEGRATI* GAVILYTE-C 240 GRAM-22.72 GRA* TRAZODONE 100 MG TABLET Take 1.5 tablets by mouth preston* DULOXETINE 60 MG CAPSULE,SARTHAK* Take 1 capsule by mouth once * BIPAP BiPAP @ 20/14 cm of water wit* Problem List As Of Date 05/14/2017 Noted Resolved Bipolar affective disorder [F31.9] INVALID FOR* More... Restless legs syndrome [G25.81] INVALID FOR* More... Insomnia [G47.00] INVALID FOR* More... Chronic pain [G89.29] INVALID FOR* More... AMBER (obstructive sleep apnea) [G47.33] INVALID FOR* More... COPD (chronic obstructive pulmonary disease) [J*INVALID FOR* HLD (hyperlipidemia) [E78.5] INVALID FOR* More... HTN (hypertension) [I10] INVALID FOR* History of Donovan thyroiditis [Z86.39] INVALID FOR* Hypothyroidism [E03.9] INVALID FOR* More... 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 (nerve pain) BUPROPION HCL SR 150 MG TABLET,12 HR* 180 * 3 05/14/2017 Route: ORAL Sig: Take 1 tablet by mouth twice daily. Medications Discontinued During This Encounter gabapentin (NEURONTIN) 600 mg tablet 90 t* 3 03/17/2016 05/14/2017 Class: [facility] Route: ORAL Sig: Take 1 tablet by mouth daily at bedtime. (nerve pain) Disc: Reason for discontinue is not on file. buPROPion SR (WELLBUTRIN SR) 150 mg * 180 * 3 03/17/2016 05/14/2017 Class: [facility] Route: ORAL Sig: Take 1 tablet by mouth twice daily. Disc: Reason for discontinue is not on file. Encounter Status:Closed by JAJA MARSHALL CNP on 05/14/17 C DIFFICILE PCR Collected: 04/27/2017 Status: F Source: [facility] 5:02 PM [facility] REPOSITORY TYPE CODE TESTS RESULT OUT OF REFERENCE UNITS RANGE LAB CDFRES C difficile PCR Negative for C. difficile toxin by PCR Performed By: #### CDPCR #### [facility] [address] [place] [id number] Observed: 04/27/2017 Status: F Source: [facility] OVA AND PARASITE SCR 4:30 PM [facility] REPOSITORY Sp. Request/Comment: - Specimen received in Ova and Parasite Kit. Culture Result - Negative for Giardia lamblia and Cryptosporidium species by EIA. Performed By: #### OVAPSC #### [facility] [address] [place] [address] Observed: 04/27/2017 Status: F Source: [facility] STOOL CULTURE 4:30 PM [facility] REPOSITORY Sp. Request/Comment: - Specimen received in a Culture and Susceptibility Kit. Campylobacter EIA - Negative for Campylobacter species by EIA. Shiga Toxin - Negative for Shiga toxin 1 and 2 by EIA Culture Result - Negative for Salmonella and Shigella sp. Negative for Escherichia coli O157:H7 Performed By: #### STCUL #### [facility] [address] [place] [address] COMP METABOLIC PANEL Collected: 04/27/2017 Status: F Source: [facility] 9:21 AM [facility] REPOSITORY TYPE CODE TESTS RESULT OUT OF REFERENCE UNITS RANGE LAB TP 6.3-8.0 g/dL Protein, Total 6.6 LAB ALB 3.9-4.9 g/dL Albumin 4.2 LAB CA 8.5-10.2 mg/dL Calcium, Total 8.8 LAB TBIL 0.2-1.3 mg/dL Bilirubin, Total 0.4 LAB ALKP 32-117 U/L Alkaline Phosphatase 59 LAB AST 13-35 U/L AST 23 LAB GLU 74-99 mg/dL Glucose High 109 Result Comment: The [place] [employer] (ADA) provides guidance for cutoff values for fasting glucose and random glucose. The ADA defines fasting as no caloric intake for at least 8 hours. Fas ting plasma glucose results between 100 to 125 mg/dL indicate increased risk for diabetes (prediabetes). Fasting plasma glucose results greater than or equal to 126 mg/dL meet the criteria for diagnosis of diabetes. In the absence of unequivocal hyperglycemia, results should be confirmed by repeat testing. In a patient with classic symptoms of hyperglycemia or hyperglycemic crisis, random plasma glucose results greater than or equal to 200 mg/dL meet the criteria for diagnosis of diabetes. Reference: Standards of Medical Care in Diabetes 2016, [place] [employer] Association. Diabetes Care. 2016.39(Suppl 1). LAB BUN 7-21 mg/dL BUN 12 LAB CRET 0.58-0.96 mg/dL Creatinine High 1.06 LAB NA 136-144 mmol/L Sodium 138 LAB K 3.7-5.1 mmol/L Low Potassium 3.5 LAB CL 97-105 mmol/L Chloride 99 LAB CO2 22-30 mmol/L CO2 26 LAB AGAP 9-18 mmol/L Anion Gap 13 LAB ALT 7-38 U/L ALT 26 LAB GFRAA eGFR- Amer. >60 LAB GFRNAA . eGFR-All Other Races 54 Result Comment: eGFR (Estimated GFR) Units of measure: mL/min/1.73 meters squared eGFR is derived from the reexpressed MDRD Study equation using the following parameters: serum creatinine, age, gender and race. The creatinine assay has been calibrated to be traceable to IDMS. An eGFR <60 mL/min/1.73m2 for >3 months is consistent with chronic kidney disease. Refer to KDOQI guidelines for clinical interpretation. In patients with unstable renal function, e.g. those with acute kidney injury, the eGFR may not accurately reflect actual GFR. Performed By: #### CMP, CBCDIF #### [facility] [address] [place] [address] CBC AND DIFFERENTIAL Collected: 04/27/2017 Status: F Source: [facility] 9:21 AM [facility] REPOSITORY TYPE CODE TESTS RESULT OUT OF REFERENCE UNITS RANGE LAB WBC 3.70-11.00 k/uL WBC 7.50 LAB RBC 3.90-5.20 m/uL RBC 4.90 LAB HGB 11.5-15.5 g/dL Hemoglobin 15.5 LAB HCT 36.0-46.0 % High Hematocrit 47.9 LAB MCV 80.0-100.0 fL MCV 97.8 LAB MCH 26.0-34.0 pG MCH 31.6 LAB MCHC 30.5-36.0 g/dL MCHC 32.4 LAB RDWCV 11.5-15.0 % RDW-CV 12.4 LAB PLTCT 150-400 k/uL Platelet Count 210 LAB MPV 9.0-12.7 fL MPV 10.9 LAB ANEUT % Neut% 72.9 LAB AANEUT 1.45-7.50 k/uL Abs Neut 5.47 LAB ALYMP % Lymph% 17.5 LAB AALYMP 1.00-4.00 k/uL Abs Lymph 1.31 LAB AMONO % [place]% 6.0 LAB AAMONO <0.87 k/uL Abs [place] 0.45 LAB AEOS % Eosin% 3.1 LAB AAEOS <0.46 k/uL Abs Eosin 0.23 LAB ABASO % Baso% 0.5 LAB AABASO <0.11 k/uL Abs Baso 0.04 LAB AUNRBC 0 /100 WBC NRBCs 0.0 LAB ABNRBC <0.01 k/uL Absolute nRBC <0.01 LAB DTYP DTYPE Auto Diff Performed By: #### CMP, CBCDIF #### [facility] [address] [place], [place] [address] PROGRESS Observed: 04/27/2017 Status: COMPLETED Source: [facility] 8:42 AM [facility] REPOSITORY HNO ID: [id number] Author: Jaja Castellanos) RUPAL Marshall Service: (none) Author Type: Nurse Practitioner Type: Progress Notes Filed: 04/27/2017 11:48 AM Note Text: Chief Complaint Patient presents with: Diarrhea: worse - vomitting - fever chills , body aches - cramping upper and lower abd x 3 weeks - HPI Zahraa James is a 57 year old female who presents here today for Above Complaints. Patient presents to the office with complaints of diarrhea. States that she was feeling bad for 3 weeks prior to her encounter with Dr. Rojas on 04/16/2017. She said that her symptoms improved prior to the encounter and then returned two days later. She states that she had some chills yesterday. No documented fevers at home. She feels fatigued also. She also states that has been having intermittent abdominal cramping for the past few weeks. States that she had had bowel incontinence at home that started yesterday. Mentions that the bowel movement is especially bad smelling. Some nausea, with a few episodes of vomiting. No blood in her stools. States that her emesis has been tasting like acid. Has been trying to follow a bland diet. Able to keep down water and Gatorade. Has been using over the counter imodium, which she states does not help. Mentions that she had an episode like this previously, that was due to bad spanish food. Also mentions that she went out for spanish food a few weeks ago and then started to have her symptoms shortly after. Patient had a colonoscopy this year, which was normal. Only showed GERD. No changes to her diet. No contact with sick individuals. No recent travel. History of gallbladder cholecystomy. Past medical history, appointments, medications, allergies reviewed. Previous Medical History PAST MEDICAL HISTORY Diagnosis Date - COPD (chronic obstructive pulmonary disease) (HCC) 03/10/2013 - Depression - Diabetes (HCC) - HTN (hypertension) 09/25/2013 - Hx of cardiac cath 02/2013 negative - Hypothyroidism 03/30/2014 - Obstructive sleep apnea Previous Surgical History PAST SURGICAL HISTORY Procedure Laterality Date - CHOLECYSTECTOMY - NECK SURGERY HX - TOTAL KNEE REPLACEMENT erich Family History FAMILY HISTORY Problem Relation Age of Onset - Cancer Father esophagus - COPD Father - Psychiatry Father Manic depressive disorder - Arthritis Father - Cancer Paternal Aunt esophagus - Cancer Paternal Uncle esophagus - Cancer Paternal Grandfather esophagus - COPD Paternal Grandfather - COPD Paternal Aunt - COPD Paternal Uncle - Thyroid Mother - Psychiatry Sister Manic depressive disorder - Psychiatry Brother manic depressive disorder - Psychiatry Daughter manic depressive disorder - Psychiatry Son Manic depressive disorder - Heart Paternal Grandmother - Arthritis Paternal Aunt - Arthritis Paternal Uncle Patient Allergies ALLERGIES Allergen Reactions - Floxin [Ofloxacin] Vomiting rash - Sulfa (Sulfonamide * Shortness of Breath Unable to breath Current Medications Current Outpatient Prescriptions on File Prior to Visit: topiramate (TOPAMAX) 25 mg tablet Take 1 tablet by mouth once daily. levothyroxine (SYNTHROID) 125 mcg tablet Take 1 tablet by mouth once daily. omeprazole (PRILOSEC) 20 mg capsule TAKE 1 CAPSULE EVERY MORNING AT LEAST 30 MINUTES BEFORE BREAKFAST hydroCHLOROthiazide (HYDRODIURIL, ESIDRIX) 25 mg tablet TAKE 1 TABLET DAILY (WATER/BLOOD PRESSURE PILL) lisinopril (ZESTRIL, PRINIVIL) 5 mg tablet TAKE 1 TABLET DAILY FOR BLOOD PRESSURE ondansetron orally disintegrating (ZOFRAN ODT) 4 mg disintegrating tablet GAVILYTE-C 240-22.72-6.72 -5.84 gram solution traZODone (DESYREL) 100 mg tablet Take 1.5 tablets by mouth daily at bedtime. DULoxetine (CYMBALTA) 60 mg capsule Take 1 capsule by mouth once daily. gabapentin (NEURONTIN) 600 mg tablet Take 1 tablet by mouth daily at bedtime. (nerve pain) buPROPion SR (WELLBUTRIN SR) 150 mg 12 hr tablet Take 1 tablet by mouth twice daily. BIPAP BiPAP @ 20/14 cm of water with humidification. Mask (per patient preference) optional chin strap (if indicated), filters, tubing, humidifier and lifetime supplies. Dx. AMBER 327.23 No current facility-administered medications on file prior to visit. Social History Social History Marital status: Unknown Spouse name: Years of education: Number of children: Social History Main Topics Smoking status: Current Every Day Smoker Packs/day: 0.25 Years: 30.00 Types: Cigarettes Smokeless status: Never Used Alcohol use: No Drug use: No REVIEW OF SYSTEMS: as above ? Reviewed relevant PMHx, PSHx, Social Hx, current medications and allergies. EXAM: BP 126/90 Pulse 99 Temp 36.9 ?C (98.5 ?F) (Tympanic) Wt 135.2 kg (298 lb) BMI 52.79 kg/m2 General Appearance: Well appearing, alert, in no acute distress, well-hydrated, well nourished., Obese. Skin: Skin color, texture, turgor normal, no suspicious rashes or lesions. Oropharynx: Lips, mucosa, and tongue normal, teeth and gums normal, oropharynx normal. Lungs: Lungs clear to auscultation. No wheezing, rhonchi, rales. Heart: RRR without murmur, gallop, or rubs. No ectopy. Abdomen: Bowel sounds normoactive in all quadrants, mild generalized tenderness in all quadrants, no hepatomegaly. . Health Maintenance List PAP EVERY 5 YEARS due on 05/07/2012 HPV EVERY 5 YEARS due on 05/07/2012 MAMMOGRAM due on 07/12/2017 DIABETES SCREEN due on 07/13/2019 LIPID SCREEN due on 07/12/2021 COLORECTAL CANCER SCREENING,SEE MODIFIER due on 11/03/2023 TETANUS due on 01/15/2024 ONE PNEUMOVAX PRIOR TO AGE 65 Completed INFLUENZA Completed HEPATITIS C SCREENING Completed Data reviewed Colonoscopy 2017 reviewed. ASSESSMENT/PLAN: 1. Diarrhea, unspecified type - ICD9: 787.91, ICD10: R19.7 (primary diagnosis) - Probable gastroenteritis vs other infection. Will get baseline labs, check stool studies due to greater than 7 days of symptoms. - CBC + DIFF - COMP METABOLIC PANEL - STOOL CULTURE/EIA - C. DIFFICILE PCR - CRYPTOSPORIDIUM AND GIARDIA ANTIGENS BY EIA 2. Abdominal cramping - ICD9: 789.00, ICD10: R10.9 - Can use zofran that is at home from prior illness for nausea - Ballinger low residue diet - DICYCLOMINE 10 MG CAPSULE - Advised increasing fluid intake. Get labs today, return stool studies. Follow up as needed. Will notify of lab results. Jaja Marshall CNP CNOV Observed: 04/27/2017 Status: COMPLETED Source: [facility] 8:20 AM [facility] REPOSITORY Office Visit (FAMPWS) DARCIEZAHRAA ([id number]) 1960 F Date Time Provider Department 04/27/17 8:20 AM JAJA MARSHALL) FAMPWS During your visit today, we recorded the following information about you: Temperature Pulse Blood pressure Weight 98.5 degrees 99/minute 126/90 135.2 kg Jaja Marshall CNP, RUPAL 04/27/2017 11:48 AM Addendum Chief Complaint Patient presents with: Diarrhea: worse - vomitting - fever chills , body aches - cramping upper and lower abd x 3 weeks - HPI Zahraa James is a 57 year old female who presents here today for Above Complaints. Patient presents to the office with complaints of diarrhea. States that she was feeling bad for 3 weeks prior to her encounter with Dr. Rojas on 04/16/2017. She said that her symptoms improved prior to the encounter and then returned two days later. She states that she had some chills yesterday. No documented fevers at home. She feels fatigued also. She also states that has been having intermittent abdominal cramping for the past few weeks. States that she had had bowel incontinence at home that started yesterday. Mentions that the bowel movement is especially bad smelling. Some nausea, with a few episodes of vomiting. No blood in her stools. States that her emesis has been tasting like acid. Has been trying to follow a bland diet. Able to keep down water and Gatorade. Has been using over the counter imodium, which she states does not help. Mentions that she had an episode like this previously, that was due to bad spanish food. Also mentions that she went out for spanish food a few weeks ago and then started to have her symptoms shortly after. Patient had a colonoscopy this year, which was normal. Only showed GERD. No changes to her diet. No contact with sick individuals. No recent travel. History of gallbladder cholecystomy. Past medical history, appointments, medications, allergies reviewed. Previous Medical History PAST MEDICAL HISTORY Diagnosis Date - COPD (chronic obstructive pulmonary disease) (HCC) 03/10/2013 - Depression - Diabetes (HCC) - HTN (hypertension) 09/25/2013 - Hx of cardiac cath 02/2013 negative - Hypothyroidism 03/30/2014 - Obstructive sleep apnea Previous Surgical History PAST SURGICAL HISTORY Procedure Laterality Date - CHOLECYSTECTOMY - NECK SURGERY HX - TOTAL KNEE REPLACEMENT erich Family History FAMILY HISTORY Problem Relation Age of Onset - Cancer Father esophagus - COPD Father - Psychiatry Father Manic depressive disorder - Arthritis Father - Cancer Paternal Aunt esophagus - Cancer Paternal Uncle esophagus - Cancer Paternal Grandfather esophagus - COPD Paternal Grandfather - COPD Paternal Aunt - COPD Paternal Uncle - Thyroid Mother - Psychiatry Sister Manic depressive disorder - Psychiatry Brother manic depressive disorder - Psychiatry Daughter manic depressive disorder - Psychiatry Son Manic depressive disorder - Heart Paternal Grandmother - Arthritis Paternal Aunt - Arthritis Paternal Uncle Patient Allergies ALLERGIES Allergen Reactions - Floxin [Ofloxacin] Vomiting rash - Sulfa (Sulfonamide * Shortness of Breath Unable to breath Current Medications Current Outpatient Prescriptions on File Prior to Visit: topiramate (TOPAMAX) 25 mg tablet Take 1 tablet by mouth once daily. levothyroxine (SYNTHROID) 125 mcg tablet Take 1 tablet by mouth once daily. omeprazole (PRILOSEC) 20 mg capsule TAKE 1 CAPSULE EVERY MORNING AT LEAST 30 MINUTES BEFORE BREAKFAST hydroCHLOROthiazide (HYDRODIURIL, ESIDRIX) 25 mg tablet TAKE 1 TABLET DAILY (WATER/BLOOD PRESSURE PILL) lisinopril (ZESTRIL, PRINIVIL) 5 mg tablet TAKE 1 TABLET DAILY FOR BLOOD PRESSURE ondansetron orally disintegrating (ZOFRAN ODT) 4 mg disintegrating tablet GAVILYTE-C 240-22.72-6.72 -5.84 gram solution traZODone (DESYREL) 100 mg tablet Take 1.5 tablets by mouth daily at bedtime. DULoxetine (CYMBALTA) 60 mg capsule Take 1 capsule by mouth once daily. gabapentin (NEURONTIN) 600 mg tablet Take 1 tablet by mouth daily at bedtime. (nerve pain) buPROPion SR (WELLBUTRIN SR) 150 mg 12 hr tablet Take 1 tablet by mouth twice daily. BIPAP BiPAP @ 20/14 cm of water with humidification. Mask (per patient preference) optional chin strap (if indicated), filters, tubing, humidifier and lifetime supplies. Dx. AMBER 327.23 No current facility-administered medications on file prior to visit. Social History Social History Marital status: Unknown Spouse name: Years of education: Number of children: Social History Main Topics Smoking status: Current Every Day Smoker Packs/day: 0.25 Years: 30.00 Types: Cigarettes Smokeless status: Never Used Alcohol use: No Drug use: No REVIEW OF SYSTEMS: as above ? Reviewed relevant PMHx, PSHx, Social Hx, current medications and allergies. EXAM: BP 126/90 Pulse 99 Temp 36.9 ?C (98.5 ?F) (Tympanic) Wt 135.2 kg (298 lb) BMI 52.79 kg/m2 General Appearance: Well appearing, alert, in no acute distress, well-hydrated, well nourished., Obese. Skin: Skin color, texture, turgor normal, no suspicious rashes or lesions. Oropharynx: Lips, mucosa, and tongue normal, teeth and gums normal, oropharynx normal. Lungs: Lungs clear to auscultation. No wheezing, rhonchi, rales. Heart: RRR without murmur, gallop, or rubs. No ectopy. Abdomen: Bowel sounds normoactive in all quadrants, mild generalized tenderness in all quadrants, no hepatomegaly. . Health Maintenance List PAP EVERY 5 YEARS due on 05/07/2012 HPV EVERY 5 YEARS due on 05/07/2012 MAMMOGRAM due on 07/12/2017 DIABETES SCREEN due on 07/13/2019 LIPID SCREEN due on 07/12/2021 COLORECTAL CANCER SCREENING,SEE MODIFIER due on 11/03/2023 TETANUS due on 01/15/2024 ONE PNEUMOVAX PRIOR TO AGE 65 Completed INFLUENZA Completed HEPATITIS C SCREENING Completed Data reviewed Colonoscopy 2016 reviewed. ASSESSMENT/PLAN: 1. Diarrhea, unspecified type - ICD9: 787.91, ICD10: R19.7 (primary diagnosis) - Probable gastroenteritis vs other infection. Will get baseline labs, check stool studies due to greater than 7 days of symptoms. - CBC + DIFF - COMP METABOLIC PANEL - STOOL CULTURE/EIA - C. DIFFICILE PCR - CRYPTOSPORIDIUM AND GIARDIA ANTIGENS BY EIA 2. Abdominal cramping - ICD9: 789.00, ICD10: R10.9 - Can use zofran that is at home from prior illness for nausea - Ballinger low residue diet - DICYCLOMINE 10 MG CAPSULE - Advised increasing fluid intake. Get labs today, return stool studies. Follow up as needed. Will notify of lab results. Jaja Marshall CNP Referring Provider: SELF [[id number]] Allergies As of Date: 04/27/2017 Noted Allergy Reaction FLOXIN (OFLOXACIN) 06/04/2012 11 - Vomiting Comments: rash SULFA (SULFONAMIDE ANTIBIOTICS) 06/04/2012 12 - Shortness of Breath Comments: Unable to breath Date Reviewed: 04/27/2017 Reviewed by: Jaja Castellanos) RUPAL Marshall - Fully Assessed Reason for Visit: Diarrhea [35] Cmt: worse - vomitting - fever chills , body aches - cramping upper and lower abd x 3 weeks - Primary Visit Diagnosis:Diarrhea, unspecified type [R19.7] Other Visit Diagnosis:Abdominal cramping [R10.9] Order(s):CBC + DIFF [SQCBCDIF] Order #: [id number] FUTURE COMP METABOLIC PANEL [SQCMP] Order #: [id number] FUTURE STOOL CULTURE/EIA [SQSTOCUL] Order #: [id number] FUTURE dicyclomine (BENTYL) 10 mg capsuleTake 1 capsule by mouth before meals and at bedtime.Disp: 30 capsuleRfl: 1 C. DIFFICILE PCR [SQCDPCR] Order #: [id number] CRYPTOSPORIDIUM AND GIARDIA ANTIGENS BY EIA [SQOVAPSC] Order #: [id number] Prescriptions as of 04/27/2017 Sig: TOPIRAMATE 25 MG TABLET Take 1 tablet by mouth once d* LEVOTHYROXINE 125 MCG TABLET Take 1 tablet by mouth once d* OMEPRAZOLE 20 MG CAPSULE,SARTHAK* TAKE 1 CAPSULE EVERY MORNING * HYDROCHLOROTHIAZIDE 25 MG TAB* TAKE 1 TABLET DAILY (WATER/BL* LISINOPRIL 5 MG TABLET TAKE 1 TABLET DAILY FOR BLOOD* ONDANSETRON 4 MG DISINTEGRATI* GAVILYTE-C 240 GRAM-22.72 GRA* TRAZODONE 100 MG TABLET Take 1.5 tablets by mouth preston* DULOXETINE 60 MG CAPSULE,SARTHAK* Take 1 capsule by mouth once * GABAPENTIN 600 MG TABLET Take 1 tablet by mouth daily * BUPROPION HCL SR 150 MG TABLE* Take 1 tablet by mouth twice * BIPAP BiPAP @ 20/14 cm of water wit* DICYCLOMINE 10 MG CAPSULE Take 1 capsule by mouth befor* Problem List As Of Date 04/27/2017 Noted Resolved Bipolar affective disorder [F31.9] INVALID FOR* More... Restless legs syndrome [G25.81] INVALID FOR* More... Insomnia [G47.00] INVALID FOR* More... Chronic pain [G89.29] INVALID FOR* More... AMBER (obstructive sleep apnea) [G47.33] INVALID FOR* More... COPD (chronic obstructive pulmonary disease) [J*INVALID FOR* HLD (hyperlipidemia) [E78.5] INVALID FOR* More... HTN (hypertension) [I10] INVALID FOR* History of Donovan thyroiditis [Z86.39] INVALID FOR* Hypothyroidism [E03.9] INVALID FOR* More... 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 Disposition: Return if symptoms worsen or fail to improve. Follow-up and Disposition History Recorded Encounter Status:Closed by JAJA MARSHALL CNP on 04/27/17 ALLERGIES ALLERGIES DATE TYPE / CODE NAME / CODE REACTION SEVERITY SOURCE 12/10/2017 Drug Sulfa Other Unknown [place] Allergy/416 (Sulfonamide [facility] 978961([facility] Antibiotics)/F[address]) 0276933(RXNORM) Repository 12/10/2017 Drug ofloxacin/Y22082 Rash Unknown [place] Allergy/416 3563(RXNORM) [facility] 799368([facility] ED CT) Repository 12/10/2017 Drug adhesive SKIN IRRITATION Unknown [place] Allergy/416 tape/[id number]( [place] 223382([facility] RXNO) Hospital ED CT) Repository 12/10/2017 Drug latex/[id number] SKIN IRRITATION Unknown [place] Allergy/416 (RXNORM) [facility] 324785([facility] ED CT) Repository 06/04/2012 DRUG OFLOXACIN Vomiting [facility] INGREDI/419 [address] [place] 783073(SNOM Repository ED CT) 06/04/2012 Drug SULFA SHORTNESS OF [facility] Class/33809 (SULFONAMIDE [place] 1003(SNOMED ANTIBIOTICS) Repository CT) ENCOUNTERS ENCOUNTERS ADMIT/DISCHARGE ACCOUNT ADMITTING ENCOUNTER LOCATION SOURCE NUMBER CLASS 04/08/2018/04/08/20 [id number] Ambulatory [place] Josh 18 [facility] ing:SDCRoom: Repository AC07 01/21/2018/01/22/20 [id number] Ambulatory [place] Josh 18 [facility] ing:SDC Repository 12/10/2017/12/11/19 [id number] Ambulatory [place] Josh 18 [facility] ing:SDCRoom: Repository AC07 11/05/2017/11/06/19 [id number] [place] 18 [facility] ing:SDC Repository 09/24/2017/09/25/19 [id number] Amb[place] 18 [facility] ing:SDC Repository 08/11/2017/08/12/19 [id number] [place] 18 [facility] ing:ED Repository 05/22/2017/05/22/19 [id number] Ambulatory [address] Repository 04/27/2017/04/27/20 [id number] Ambulatory [address] Repository 04/27/2017/04/27/20 [id number] Ambulatory [address] Repository 04/27/2017/04/27/20 [id number] Ambulatory [address] Repository PAYERS PAYERS ENCOUNTER GUARANTOR PAYER SUBSCRIBER SOURCE 04/08/2018 ZAHRAA L Primary ZAHRAA L [place] [id number] Insurance[facility] [id number] Number: Repository [address]Etq: [phone] [id number] [phone] () Date:5022-55-[address] [address]LT: 04/08/2018 Secondary NOT GIVENUNK [place] Insurance:SELF PAY [facility] Number: Effective Repository Date:2018-04-03 01/21/2018 Zahraa L Primary Zahraa L [place] [id number] Insurance[facility]ICAL [facility] [id number] Number: Repository [id number]: [phone] [id number] [phone] (HP) Date:3620-02-29GW [address] [place] [address]DY: 01/21/2018 Secondary NOT GIVENUNK [place] Insurance:SELF PAY [facility] Number: Effective Repository Date:2018-01-14 12/10/2017 Zahraa L Primary Zahraa L [place] [id number] Insurance:MEDICAL [place]OB: [facility] [id number] Number: Repository [address]Nbi: 234 [id number] [phone] (HP) Date:7011-45-52QZ [address] [place] [address]PO: 12/10/2017 Secondary NOT GIVENUNK [place] Insurance:SELF PAY [facility] Number: Effective Repository Date:2017-12-05 11/05/2017 Zahraa L Primary Zahraa L [place] [id number] Insurance:MEDICAL [place]: [facility] [id number] Number: Repository [address]Dyh: 234 [id number] [phone] (HP) Date:0991-51-51SK [address] [address]PI: 11/05/2017 Secondary NOT GIVENUNK [place] [facility] Number: Effective Repository Date:2017-10-26 09/24/2017 Zahraa L Primary Zahraa L [place] [id number] Insurance:MEDICAL [place]OB: [facility] [id number] Number: Repository [address]Xfo: 234 [id number] [phone] (HP) Date:1354-75-89KR [address] [address]JF: 09/24/2017 Secondary NOT GIVENUNK [place] Insurance[facility] Number: Effective Repository Date:2017-09-17 08/11/2017 Zahraa L Primary Zahraa L [place] [id number] Insurance:MEDICAL [facility] [id number] Number: Repository [id number]: [phone] [id number] [phone] () Date:2358-90-66ER [address] [place] [address]IK: 08/11/2017 Secondary NOT GIVENUNK [place] Insurance:SELF PAY [facility] Number: Effective Repository Date:2017-08-11
--- OUTSIDE RECORDS SUMMARY | 2018-06-01 03:49 | XMS RPT_ITS ---
:1960 Author Organization [employer] Address [address] [place] [address] Phone Care Team Providers Name Role Phone Kathy VERA, Dung Elam Unavailable Reason for Visit Reason For Visit Description Start Date Test Result Preliminary reason for visit data, not yet signed by the author as of lower back pain Preliminary reason for visit data, not yet signed by the author as of Chief Complaint Chief Complaint Description Start Date lower back pain Preliminary chief complaint data, not yet signed by the author as of Instructions Instruction Description Start Date Patient advised to follow-up with Primary Care Physician for BMI management. Plan of Care Type Date Detail Appointment 08:50 AM Dung Chavez MD, [address] [facility], [facility], [place], [address], Patient education \cps-sql1\CPS_PtEducation\qu itting_[id number] Medications Medication Instructions Start Stop Generic Name NDC Provider Date Date WELLBUTRIN SR 150 MG one tablet BUPROPION HCL [id number] Bertha [id number] twice daily 07/23 D'Kelsi PA-C CYMBALTA 60 MG CPEP one capsule DULOXETINE HCL 05114283349 Bertha daily 07/23 D'Kelsi PA-C TRAZODONE HCL 100 MG one and half TRAZODONE HCL 84416360039 Bertha TABS tablets daily 07/23 D'Kelsi PA-C LISINOPRIL 5 MG TABS one tablet LISINOPRIL 45967980764 Bertha daily 07/23 D'Kelsi PA-C HYDROCHLOROTHIAZIDE one tablet HYDROCHLOROTHIAZIDE 72845072551 Bertha 25 MG TABS daily 07/23 D'Kelsi PA-C PRILOSEC 20 MG CPDR one capsule OMEPRAZOLE 07957305235 Bertha daily 07/23 D'Kelsi PA-C LEVOTHYROXINE SODIUM one tablet LEVOTHYROXINE SODIUM 75157658061 Bertha 125 MCG TABS daily 07/23 D'Kelsi PA-C TOPAMAX 25 MG TABS one tablet TOPIRAMATE 14830330451 Bertha daily 07/23 D'Kelsi PA-C GABAPENTIN 600 MG one tablet GABAPENTIN 39897548784 Bertha TABS daily 07/23 D'Kelsi PA-C Conditions or Problems Problem Name Problem Code Onset Status Entry Provider Comment Standard Annotate Date Date Description Spinal [id number] Active Dung M Neurogenic L4-5 stenosis of 102 (SNOMED 08/10 08/10 Kathy VERA claudication severe, lumbar region CT) co-occurrent L5-S1 with and due to moderate neurogenic spinal stenosis to severe claudication of lumbar region Neural 224505644589 Active Dung M Stenosis of L5-S1 foraminal (SNOMED CT) 08/10 08/10 Kathy VERA intervertebral right, stenosis of foramina L4-5 left lumbosacral spine Lumbar 167678681 Active Bertha Lumbar radiculopathy (SNOMED CT) 07/23 07/23 D'Kelsi radiculopathy PA-C DDD 34821673 Active Bertha 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) 07/23 07/23 D'Kelsi lumbar L5-S1 disc PA-C intervertebral disease), disc lumbar Allergies, Adverse Reactions, Alerts Allergy Name Reaction Start Date Severity Status Provider Description FLOXIN eye redness, rash Critical Active Bertha D'Kelsi PA-C SULFA codes Critical Active Bertha D'Kelsi PA-C Social History Concept Description Observation Name Observation Value Units Start Date Tobacco use and SMOK ADVICE Yes exposure Preliminary social history data, not yet signed by the author as of Vital Signs Date Name Value Unit Description BMI (Body Mass 54.93 kg/m2 Body Mass Index Index) [Ratio] Preliminary vital sign data, not yet signed by the author as of BP Diastolic 82 mm[Hg] blood pressure, diastolic Preliminary vital sign data, not yet signed by the author as of BP Systolic 114 mm[Hg] blood pressure, systolic Preliminary vital sign data, not yet signed by the author as of Heart Rate 94 /min pulse rate E&M Preliminary vital sign data, not yet signed by the author as of Height 63 [in_us] height E&M Preliminary vital sign data, not yet signed by the author as of Height 160 cm height in centimeters E&M Preliminary vital sign data, not yet signed by the author as of Weight Measured 309 [lb_av] weight E&M Preliminary vital sign data, not yet signed by the author as of Weight Measured 140 kg weight in kilograms E&M Preliminary vital sign data, not yet signed by the author as of Results Date Name Value Unit Range Flag Description Office Visit: Test Result, Rm: 20 MEDS REVIEW Done Documentation of current medications (procedure) Preliminary observation data, not yet signed by the author as of SMOK ADVICE Yes Smoking cessation education (procedure) Preliminary observation data, not yet signed by the author as of XRAY HX of the Lumbar xray history spine on 07/23/2017 at [facility] Preliminary observation data, not yet signed by the author as of MRI HX of the Lumbar MRI (magnetic spine on resonance 08/02/2017 at imaging) history [facility] Preliminary observation data, not yet signed by the author as of Preliminary observation data, not yet signed by the author as of Clinical Summary: HMSPatientID OOP account number Procedures Code Procedure Name Date Entry Date G8730 Pain assessment documented as positive - follow-up documented G8427 Current medications documented 4004F Tobacco screening was positive - cessation counseling received G8417 BMI documented as above normal parameters - follow-up documented G8783 Blood pressure within normal parameters - no follow-up required [id number] Patient Encounter Medications Administered No information available. Immunizations No [...]
== END 2018-04-08 08:32 | disposition home or self-care (01) ==
LOC: SDC 06:16 → AC 06:17
PROVIDERS: Family Provider Family Medicine; PCP Family Medicine; Referring Provider Anesthesiology Pain Medicine; Visit Provider Anesthesiology Pain Medicine
PROC: 3E0T3BZ Introduction of Anesthetic Agent into Peripheral Nerves and Plexi, Percutaneous Approach (ICD-10-PCS; CPT 64493; principal; 2018-04-08 07:15)
DX: M51.37 Other intervertebral disc degeneration, lumbosacral region (principal); M47.817 Spondylosis without myelopathy or radiculopathy, lumbosacral region; M48.07 Spinal stenosis, lumbosacral region; M06.9 Rheumatoid arthritis, unspecified; J44.9 Chronic obstructive pulmonary disease, unspecified; I10 Essential (primary) hypertension; E03.9 Hypothyroidism, unspecified; G47.30 Sleep apnea, unspecified; K21.9 Gastro-esophageal reflux disease without esophagitis; F31.9 Bipolar disorder, unspecified; F41.9 Anxiety disorder, unspecified; F17.210 Nicotine dependence, cigarettes, uncomplicated; Z78.0 Asymptomatic menopausal state; Z79.82 Long term (current) use of aspirin; Z79.891 Long term (current) use of opiate analgesic; Z79.899 Other long term (current) drug therapy; Z96.653 Presence of artificial knee joint, bilateral
CPT/HCPCS: 64493; 64494; 64495; 64483; 72110; J7120

== ENCOUNTER 2021-03-02 19:45 | Emergency (ER) | payer OTHER, SELFPAY ==
[2021-03-02 19:45] VITALS: BP 146/88; PULSE 90; RESP 16; TEMP 36.9; O2SAT 95; BMI 58.4
--- NOTE | 2021-03-02 20:22 | RAD_ITS ---
INDICATION: cough EXAMINATION/TECHNIQUE: X-RAY - XR Chest 1 View COMPARISON: Chest x-ray 10/26/2015. FINDINGS: LINES/DEVICES: None. LUNGS: Symmetric normal lung volumes. No airspace opacity or abnormal interstitial pattern. No nodule or mass. Trace fluid seen in the right minor fissure. No other evidence of pleural fluid. No pneumothorax. MEDIASTINUM AND CARDIOVASCULAR STRUCTURES: Normal size and contour of the cardiomediastinal silhouette. No evidence of pulmonary vascular congestion. BONES AND SOFT TISSUES: No abnormality within limits of the exam. RAD/Chest 1 View (Portable) IMPRESSION: 1. Trace fluid right minor fissure. Otherwise normal exam. Electronically Signed: Blake Carlson DO at 21:37 EDT Tel , Service support ,
--- NOTE | 2021-03-02 20:23 | EDS_ITS ---
HPI History of Present Illness Chief Complaint: Fever Narrative Narrative: 60-year-old female presenting with fever, body aches, chills, diarrhea from home. She states this is been ongoing for just over 2 weeks. She has a cough as well. She does not have chest pain or shortness of breath. Patient states that she was doing the brat diet to get through it. She has been able to eat and drink. She states she is making urine but it is decreased. She denies dysuria or hematuria. She does admit to some abdominal cramping but is not focal anywhere. Patient also has a headache. She reports that her highest fever from home was 100 ?F but her normal temperature is 94 ?F. PFSH PFSH Home Medications bupropion HCl 150 mg PO BID 03/03/13 [History Last Taken 01/21/18 06:00] gabapentin [Neurontin] 600 mg PO QHS 03/03/13 [History Last Taken 03/02/13] trazodone 150 mg PO QHS 03/03/13 [History Last Taken 03/02/13] hydrochlorothiazide 25 mg PO DAILY #30 tablet 03/05/13 [Rx Last Taken 12/10/17 04:00 25 MG] lisinopril 5 mg PO DAILY #30 tablet 03/05/13 [Rx Last Taken 04/08/18 05:00] duloxetine 60 mg PO QHS 06/05/15 [History Last Taken Unknown] omeprazole 20 mg PO DAILY 06/05/15 [History Last Taken 04/08/18 05:00] levothyroxine 125 mcg PO DAILY 10/26/15 [History Last Taken 04/08/18 05:00] topiramate 25 mg PO BID 10/26/15 [History Last Taken Unknown] albuterol sulfate [Proair Hfa] 1 - 2 puff INHALATION PRN PRN 09/18/17 [History Last Taken 04/08/18 05:00] aspirin 81 mg PO DAILY@0800 09/18/17 [History Last Taken 01/16/18] etodolac 400 mg PO BID 03/02/21 [History Last Taken Unknown] fluticasone propion-salmeterol [Advair Diskus] 1 inh INHALATION BID 03/02/21 [History Last Taken Unknown] ondansetron 4 mg PO Q8H PRN PRN #14 tab 03/02/21 [Rx Last Taken Unknown] pantoprazole 40 mg PO DAILY 03/02/21 [History Last Taken Unknown] ropinirole 4 mg PO QHS 03/02/21 [History Last Taken Unknown] Allergy/AdvReac Type Severity Reaction Status Date / Time ofloxacin [From Floxin] Allergy Rash Verified 03/02/21 19:48 Sulfa (Sulfonamide Allergy Other Verified 03/02/21 19:48 Antibiotics) adhesive tape AdvReac skin Verified 03/02/21 19:48 irritation latex AdvReac skin Verified 03/02/21 19:48 irritation Social History Smoking Status: Current every day smoker tobacco type: cigarettes ROS ROS ED Constitutional Constitutional ED: Reports chills and fever(s) Eyes Eyes: Denies blurry vision or diplopia ENT ENT ED: Denies rhinorrhea or sore throat Cardiovascular Cardiovascular: Denies chest pain or palpitations Respiratory/Chest Respiratory/Chest: Reports cough; Denies dyspnea or dyspnea on exertion Gastrointestinal Gastrointestinal: Reports diarrhea, nausea and other Details: Diffuse abdominal cramping Genitourinary Genitourinary ED: Denies dysuria or hematuria Musculoskeletal Musculoskeletal: Reports myalgias; Denies arthralgias, back pain or neck pain Integumentary Denies rash Neurologic Neurologic: Denies headache(s) or paresthesias EXAM Physical Exam Const Vital Signs: 03/02/21 19:45 03/02/21 20:51 Temperature 98.4 F 98.7 F Temperature Source Temporal Temporal Pulse Rate 90 88 Respiratory Rate 16 15 Respiratory Effort Normal Non-Labored Blood Pressure 146/88 H 132/64 H Blood Pressure Mean 107 86 Pulse Ox 95 96 Oxygen Delivery Method Room Air Room Air Positive well nourished General Appearance ED: NAD; Negative for pallor HEENT Reports moist mucous membranes Negative for trauma Eyes PERRL and EOMs intact bilaterally Neck no lymphadenopathy and supple Resp normal respiratory effort and clear to auscultation bilaterally Cardio regular rate and regular rhythm GI normal to inspection, nondistended, normoactive bowel sounds Extremity Negative for normal to inspection General Extremety ED: Negative for tenderness Neuro oriented x3 and CN's II-XII intact bilaterally Sensorium / Orientation: alert Psych mental status grossly normal Skin no rashes or lesions noted General Skin Exam: Negative for jaundice or pallor MDM MDM MDM Narrative Medical decision making narrative: Patient presenting with viral syndrome symptoms. She had diarrhea. She states she has had a fever but her temperature is only been as high as 100 ?F. She does have a cough and chills. On exam the patient's abdomen is not tender. Her lungs are clear to auscultation. Her vital signs are stable and she is afebrile. I did obtain blood work and her CBC is unremarkable. CMP shows a slight increase in her potassium at 3.3 otherwise normal. Urinalysis is negative for infection. Chest x-ray on my interpretation shows no acute cardiopulmonary process. The radiologist does state that there might be some slight fluid in the right minor fissure. This is of uncertain significance. I think the patient is stable to be discharged home. I did give her Reglan and Benadryl which helped with her headache and her nausea and she feels improved. I will provide the patient Zofran for home. She is to follow- up with her PCP to ensure resolution. I did not test her for Covid today because she is already 2-1/2 weeks into this and she has no hypoxia and technically she should be coming out of quarantine. Patient amenable to this course. She be discharged home in stable condition. Impression: 1. Viral syndrome Lab Data Attestation: I reviewed the patient's lab results. Labs: Laboratory Results - last 24 hr 03/02/21 03/02/21 03/02/21 20:05 20:36 20:36 WBC 8.7 RBC 4.86 Hgb 15.2 H Hct 45.8 MCV 94.2 MCH 31.3 MCHC 33.2 RDW Std Deviation 44.0 H RDW Coeff of Zachary 12.8 Plt Count 94 L MPV 11.4 Immature Gran % (Auto) 0.600 Neut % (Auto) 75.0 H Lymph % (Auto) 16.8 L [place] % (Auto) 4.7 Eos % (Auto) 2.6 Baso % (Auto) 0.3 Absolute Neuts (auto) 6.5 Absolute Lymphs (auto) 1.47 Nucleated RBC % 0 Differential Comment SCANNED Sodium 142 Potassium 3.3 L Chloride 105 Carbon Dioxide 31.0 Anion Gap 6 BUN 9 Creatinine 1.12 H Estim Creat Clear Calc 44.74 Est GFR (MDRD) Af Amer 64 Est GFR (MDRD) Non-Af 53 L BUN/Creatinine Ratio 8.0 L Glucose 96 Calcium 9.1 Total Bilirubin 0.40 AST 29 ALT 25 Alkaline Phosphatase 63 Total Protein 6.6 Albumin 3.3 Globulin 3.3 Albumin/Globulin Ratio 1.0 Lipase 58 L Urine Color Yellow Urine Clarity Clear Urine pH 5.0 Ur Specific [place] 1.025 Urine Protein 15 H Urine Glucose (UA) Normal Urine Ketones Negative Urine Occult Blood 10 H Urine Nitrite Negative Urine Bilirubin Negative Urine Urobilinogen Normal Ur Leukocyte Esterase 25 H Urine RBC 0 SEEN Urine WBC 0-5 SEEN Ur Squamous Epith Cells 5-10 SEEN Urine Bacteria RARE Urine Mucus 0 SEEN Radiography Diagnostic Testing: Clinical Impression(s) from Imaging Studies Chest X-Ray 03/02/21 20:22 IMPRESSION: 1. Trace fluid right minor fissure. Otherwise normal exam. Electronically Signed: Blake Carlson DO at 21:37 EDT Tel , Service support , Discharge Plan Triage Chief Complaint: Fever ED Provider: Valentin Noyola Dx/Rx/DC Orders Instructions: ED Viral Syndrome (Adult) Prescriptions: New ondansetron 4 mg tablet,disintegrating 4 mg PO Q8H PRN PRN (Reason: Nausea) Qty: 14 RF: 0 No Action gabapentin [Neurontin] 600 MG tablet 600 mg PO QHS RF: 0 bupropion HCl 100 MG tablet 150 mg PO BID RF: 0 trazodone 150 MG tablet 150 mg PO QHS RF: 0 lisinopril 5 MG tablet 5 mg PO DAILY Qty: 30 RF: 3 hydrochlorothiazide 25 MG tablet 25 mg PO DAILY Qty: 30 RF: 3 omeprazole 20 MG capsule 20 mg PO DAILY RF: 0 duloxetine 30 MG capsule,delayed release(DR/EC) 60 mg PO QHS RF: 0 topiramate 25 MG tablet 25 mg PO BID RF: 0 levothyroxine 100 MCG tablet 125 mcg PO DAILY RF: 0 aspirin 81 MG tablet 81 mg PO DAILY@0800 RF: 0 albuterol sulfate [ProAir HFA] 1 PUFF inhaler 1 - 2 puff inhalation PRN PRN (Reason: Sob &/Or Wheezing) RF: 0 pantoprazole 40 mg tablet,delayed release (DR/EC) 40 mg PO DAILY RF: 0 etodolac 400 mg tablet 400 mg PO BID RF: 0 fluticasone propion-salmeterol [Advair Diskus] 100-50 mcg/dose Blister With Device 1 inh INHALATION BID RF: 0 ropinirole 4 mg tablet 4 mg PO QHS RF: 0 Primary Care Provider: Jamse Lima Referrals: James Lima MD [Primary Care Provider] - Disposition Disposition: Home, Self Care
[2021-03-02] MEDS: DiphenhydrAMINE 50 MG/ML Syringe 25 MG IV (20:41)
[2021-03-02] MEDS: Metoclopramide 10 MG/2 ML Vial IV (20:44)
[2021-03-02 20:51] VITALS: BP 132/64; PULSE 86; PULSE 88; RESP 15; TEMP 37.1; O2SAT 96
[2021-03-02 21:06] LABS: Mucous, Urine 0 SEEN /hpf (<or=2+); Red Blood Cells-Urine 0 SEEN /hpf (0-5)
[2021-03-02 21:08] LABS: Absolute Lymphocyte Count 1.47 X10^3/uL (0.83-4.51); Absolute Neutrophil Count 6.5 X10^3/uL (2.0-7.7); Basophil# 0.03 X10^3/uL; Basophil% 0.3 % (0-1); Eosinophil# 0.23 X10^3/uL; Eosinophils% 2.6 % (0-5); Hematocrit 45.8 % (37-47); Hemoglobin 15.2 g/dL (12.0-15.0); Lymphocyte # 1.47 X10^3/ul (0.83-4.51); Lymphocyte % 16.8 % (19-41); Mean Corp Hgb Conc 33.2 g/dL (32-36); Mean Corpuscular Hgb 31.3 pg (27.0-32.0); Mean Corpuscular Volume 94.2 fL (81-99); Mean Platelet Vol. 11.4 fl (6.2-12.0); Monocyte# 0.41 X10^3/uL; Monocyte% 4.7 % (0-10); NRBC Flagged by Analyzer 0 % (0-5); Neutrophil # 6.54 X10^3/uL (2.7-7.7); POSITIVE COUNT YES; Platelet Count 94 K/mm3 (150-450); RBC Distribution Width CV 12.8 % (11.6-14.6); Red Blood Count 4.86 M/mm3 (4.2-5.4); White Blood Count 8.7 K/mm3 (4.4-11.0)
[2021-03-02 21:08] LABS: Color, Urine Yellow (Yellow); Glucose, Dipstick Normal (Normal); Ketone-Dipstick Negative (Negative); Leukocyte Esterase-Dipstick 25 /ul (Negative); Nitrite-Dipstick Negative (Negative); Occult Blood-Urine 10 /ul (Negative); Protein-Dipstick 15 mg/dl (Negative); Specific Gravity, Urine 1.025 (1.002-1.030); Urine Bilirubin Dipstick Negative (Negative); Urine Clarity Clear (Clear); Urine Urobilinogen Normal (Normal)
[2021-03-02 21:11] LABS: Differential Indicated SCAN CRITERIA MET
[2021-03-02 21:15] LABS: Squamous Epithelial Cells - UA 5-10 SEEN /hpf (5-10); White Blood Cells 0-5 SEEN /hpf (0-5)
[2021-03-02 21:16] LABS: Bacteria RARE /hpf (None Seen)
[2021-03-02 21:38] LABS: AST(SGOT) 29 U/L (15-37); Alanine Aminotransfer ALT/SGPT 25 U/L (13-56); Albumin, Serum 3.3 g/dL (3.2-5.0); Alkaline Phosphatase 63 U/L (45-117); Anion Gap 6 (5-15); BUN 9 mg/dL (7-18); Calcium,Total 9.1 mg/dL (8.5-10.1); Chloride 105 mmol/L (98-107); Creatinine, Serum 1.12 mg/dL (0.55-1.02); EST Glomerular Filtration Rate 53 mL/min (>60); Est Glom Filt Rate - Afr Amer 64 mL/min (>60); Estimated Creatinine Clearance 44.74 ml/min; Globulin 3.3 g/dL (2.2-4.2); Glucose 96 mg/dL (74-106); Lipase 58 U/L (73-393); Potassium 3.3 mmol/L (3.5-5.1); Protein, Total 6.6 g/dL (6.4-8.2); Sodium Level 142 mmol/L (136-145)
[2021-03-02 21:45] LABS: Differential Comment SCANNED
[2021-03-02 22:47] VITALS: BP 132/79; PULSE 94; RESP 20; O2SAT 97
--- NOTE | 2021-03-02 22:48 | ED.RN ---
THIS NURSE REVIEWED D/C INSTRUCTIONS WITH PT. PT VERBALIZED UNDERSTANDING OF INSTRUCTIONS. IV D/C. IV CATHETER INTACT. PT TOLERATED WELL. PT DENIES FURTHER NEEDS OR QUESTIONS AT THIS TIME.
== END 2021-03-02 22:49 | disposition home or self-care (01) ==
PROVIDERS: Emergency Provider Student in an Organized Health Care Education/Training Program; PCP Family Medicine
DX: B34.9 Viral infection, unspecified (principal); R19.7 Diarrhea, unspecified; R50.9 Fever, unspecified; R05.9 Cough, unspecified; R10.9 Unspecified abdominal pain; R51.9 Headache, unspecified; Z79.82 Long term (current) use of aspirin; Z79.890 Hormone replacement therapy; Z79.899 Other long term (current) drug therapy; F17.210 Nicotine dependence, cigarettes, uncomplicated
CPT/HCPCS: 71045; 80053; 81001; 83690; 85025; 96374; 96375; 99283; A4216

== ENCOUNTER 2021-06-30 10:25 | Outpatient (CLI) | payer MEDICAID, SELFPAY ==
--- NOTE | 2021-06-30 10:33 | EKG12_ITS ---
Test Reason : HYPERTENSION Blood Pressure : / mmHG Vent. Rate : 090 BPM Atrial Rate : 090 BPM P-R Int : 148 ms QRS Dur : 092 ms QT Int : 368 ms P-R-T Axes : 058 052 031 degrees QTc Int : 450 ms Normal sinus rhythm Nonspecific ST abnormality Abnormal ECG Confirmed by MADY VERA, FLOYD ([id number]), story editor NEWTON JONES ([id number]) on 07/04/2021 11:41:38 AM Referred By: [facility] Confirmed By:FLOYD EARL MD
[2021-06-30 13:01] LABS: Absolute Lymphocyte Count 1.36 X10^3/uL (0.83-4.51); Absolute Neutrophil Count 5.8 X10^3/uL (2.0-7.7); Basophil# 0.03 X10^3/uL; Basophil% 0.4 % (0-1); Eosinophil# 0.15 X10^3/uL; Eosinophils% 1.9 % (0-5); Hematocrit 48.7 % (37-47); Hemoglobin 16.4 g/dL (12.0-15.0); Lymphocyte # 1.36 X10^3/ul (0.83-4.51); Lymphocyte % 17.6 % (19-41); Mean Corp Hgb Conc 33.7 g/dL (32-36); Mean Corpuscular Hgb 31.8 pg (27.0-32.0); Mean Corpuscular Volume 94.6 fL (81-99); Mean Platelet Vol. 10.6 fl (6.2-12.0); Monocyte# 0.34 X10^3/uL; Monocyte% 4.4 % (0-10); NRBC Flagged by Analyzer 0 % (0-5); Neutrophil # 5.79 X10^3/uL (2.7-7.7); Neutrophil % 75.1 % (47-70); Platelet Count 202 K/mm3 (150-450); RBC Distribution Width CV 14.1 % (11.6-14.6); Red Blood Count 5.15 M/mm3 (4.2-5.4); White Blood Count 7.7 K/mm3 (4.4-11.0)
[2021-06-30 13:02] LABS: Erythrocyte Sedimentation Rate 4 mm/hr (0-30)
[2021-06-30 13:13] LABS: Hemoglobin A1c 5.8 % (3.8-5.6)
[2021-06-30 13:48] LABS: ALB/GLOB Ratio 1.1 RATIO (0.9-2.4); AST(SGOT) 14 U/L (15-37); Alanine Aminotransfer ALT/SGPT 24 U/L (13-56); Albumin, Serum 3.6 g/dL (3.2-5.0); Alkaline Phosphatase 86 U/L (45-117); Anion Gap 5 (5-15); BUN 10 mg/dL (7-18); BUN/Creat Ratio 9.5 RATIO (10-20); CPK Total, Creatine Kinase 84 U/L (26-192); CRP 4.42 mg/L (0.0-3.0); Calcium,Total 8.8 mg/dL (8.5-10.1); Chloride 105 mmol/L (98-107); Cholesterol 221 mg/dL (200); Creatinine, Serum 1.05 mg/dL (0.55-1.02); EST Glomerular Filtration Rate 57 mL/min (>60); Est Glom Filt Rate - Afr Amer 69 mL/min (>60); Globulin 3.3 g/dL (2.2-4.2); Glucose 103 mg/dL (74-106); High Density Lipoprotein 48 mg/dL; Potassium 3.6 mmol/L (3.5-5.1); Protein, Total 6.9 g/dL (6.4-8.2); Rheumatoid Factor < 10.0 IU/mL (<15); Sodium Level 140 mmol/L (136-145); Thyroid Stim Hormone (TSH) 2.21 uIU/mL (0.358-3.74); Triglycerides 162 mg/dL; Uric Acid 5.4 mg/dL (2.6-6.0); Very Low Density Lipoprotein 32 mg/dL (5-40)
--- NOTE | 2021-07-01 09:59 | PFT ---
INTRODUCTION: The patient is a 61-year-old female that presents for pulmonary function studies secondary to a diagnosis of COPD. Respiratory therapy reported good patient effort. Bronchodilators were used during testing. INTERPRETATION: Forced expiration spirometry demonstrates no evidence of a large airways obstructive ventilatory defect. There was a significant response to aerosolized bronchodilators. Spirograms are of good quality and plateau normally. Body plethysmography was performed and revealed an elevated RV to 145% of predicted. Diffusing capacity by single breath CO was within normal limits. IMPRESSION: Stigmata of small airways disease with associated air trapping and significant response to aerosolized bronchodilators.
[2021-07-01 11:37] LABS: ANTINUCLEAR ANTIBODIES DIRECT Negative (Negative)
== END 2021-06-30 23:59 | disposition home or self-care (01) ==
PROVIDERS: Visit Provider Nurse Practitioner Adult Health
DX: J44.9 Chronic obstructive pulmonary disease, unspecified (principal); I10 Essential (primary) hypertension; G25.81 Restless legs syndrome; M15.9 Polyosteoarthritis, unspecified
CPT/HCPCS: 36415; 80053; 80061; 82550; 83036; 84443; 84550; 85025; 85652; 86038; 86140; 86431; 93005; 94060; 94726; 94729

== ENCOUNTER 2021-12-06 07:30 | Outpatient (RCR) | payer MEDICAID, SELFPAY ==
--- NOTE | 2021-11-02 11:36 | HP.OTEVAL ---
Patient's Visit Information BJ SPRAGUE is a 61 year old F, referred to Occupational Therapy by [facility], with a diagnosis of right CMC OA. Date of Evaluation: 11/02/21 Occupational Therapist: Melinda Llanes, OTR/L, CHT - Subjective This 61 year old female was seen for OT eval with dx of right cmc arthritis- s/p CMC arthroplasty 4 weeks and 4 days. pt states she began having pain and after seeing her first ortho dr. he referred pt to Dr. Mehta for sx consultation. pt has sx on Oct 01 2019- pt arrives for custom orthosis along with initiation of CMC arthroplasty protocol. Pt states she would like to return to her PLOF and move in with her dtr by end dec. - Pain right hand 3 - ROM Wrist: right 40/30 left 70/45 CMC: right 10 left 15 MP: right 30 left 50 IP: right 50 left 70 Radial Abduction: right 30 left 45 Opposition: Kapandji opposition scale right 5 left 10 - Strength Teletypewriter Operator: right NT left 70# Lateral Pinch: right NT left 16# Tripod Pinch: right NT left 20# - Quick DASH-Disab of Arm,Shoulder& Hand Quick DASH Score: 61.3625 - Goals Goal:100% adherence to protocol: Yes Comment: CC cmc arthroplasty protocol Goal:Daily scar massage when approriate: Yes Goal:ROM equal to unaffected hand: Yes Goal:Teletypewriter Operator/Pinch strength at least 75% of unaffected hand: Yes Goal:No pain with affected hand use: Yes Goal:Full use of affected hand in daily activities including: Yes - Rehabilitation General Assessment: pt arrives 4 weeks and 4 days s/p from right CMC arthroplasty- pt arrives for custom orthosis and guidance of ex and strengthening when appropriate. pt demo with limited use of right UE for ADLS due to newly healing structures- pt would benefit from skilled OT/CHT services 1-2x week for 6 weeks to assist pt in return to her PLOF. Today therapist ed. pt on orthosis use precautions and skin care- pt demo understanding- therapist ed. pt on short arch wrist ROM along with supported CMC with MP and IP flex- skin care and scar mtg- pt demo understanding and and agree to POC. Rehabilitation Potential: Excellent - Anticipated Interventions A/AAROM/PROM, Strengthening, Scar Care, Triggerpoint Release, Sensory Retraining, Modalities, Orthoses, Joint Protection/Energy Conservation, Ergonomic Education, ADL Training, Education re assistive Equipment, Education re Diagnosis - Visit Plan Frequency: 1-2x /Week Duration: 2 Months TEXT: Thank you for the opportunity to evaluate your patient. For Medicare and Medicare HMO plans, please review the plan of care and approve it. It will need to be FAXED BACK to us at [phone] for Medicare purposes. Please let me know if there are questions or concerns regarding this plan of care. Physician Signature: Date:
--- NOTE | 2021-11-02 11:37 | HP.OTEVAL ---
Patient's Visit Information BJ SPRAGUE is a 61 year old F, referred to Occupational Therapy by [facility], with a diagnosis of right CMC OA. Date of Evaluation: 11/02/21 Occupational Therapist: Melinda Llanes, OTR/L, CHT - Subjective This 61 year old female was seen for OT eval with dx of right cmc arthritis- s/p CMC arthroplasty 4 weeks and 4 days. pt states she began having pain and after seeing her first ortho dr. he referred pt to Dr. Mehta for sx consultation. pt has sx on Oct 01 2019- pt arrives for custom orthosis along with initiation of CMC arthroplasty protocol. Pt states she would like to return to her PLOF and move in with her dtr by end of Dec. - ADLs Dressing: Pants, Socks, Shoes Fasteners: Buttons, Zippers Eating: Cut food Bathing: Handle washcloth & soap Kitchen: Peel fruits & vegetables, Open jars, Open bottle caps - Pain right hand 3 - ROM Wrist: right 40/30 left 70/45 CMC: right 10 left 15 MP: right 30 left 50 IP: right 50 left 70 Radial Abduction: right 30 left 45 Opposition: Kapandji opposition scale right 5 left 10 - Strength S[employer] Business Analyst: right NT left 70# Lateral Pinch: right NT left 16# Tripod Pinch: right NT left 20# - Quick DASH-Disab of Arm,Shoulder& Hand Quick DASH Score: 61.3625 - Goals Goal:100% adherence to protocol: Yes Comment: CC cmc arthroplasty protocol Goal:Daily scar massage when approriate: Yes Goal:ROM equal to unaffected hand: Yes Goal:[employer] [place] Business Analyst/Pinch strength at least 75% of unaffected hand: Yes Goal:No pain with affected hand use: Yes Goal:Full use of affected hand in daily activities including: Yes - Rehabilitation General Assessment: pt arrives 4 weeks and 4 days s/p from right CMC arthroplasty- pt arrives for custom orthosis and guidance of ex and strengthening when appropriate. pt demo with limited use of right UE for ADLS due to newly healing structures- pt would benefit from skilled OT/CHT services 1-2x week for 6 weeks to assist pt in return to her PLOF. Today therapist ed. pt on orthosis use precautions and skin care- pt demo understanding- therapist ed. pt on short arch wrist ROM along with supported CMC with MP and IP flex- skin care and scar mtg- pt demo understanding and and agree to POC. Rehabilitation Potential: Excellent - Anticipated Interventions A/AAROM/PROM, Strengthening, Scar Care, Triggerpoint Release, Sensory Retraining, Modalities, Orthoses, Joint Protection/Energy Conservation, Ergonomic Education, ADL Training, Education re assistive Equipment, Education re Diagnosis - Visit Plan Frequency: 1-2x /Week Duration: 2 Months TEXT: Thank you for the opportunity to evaluate your patient. For Medicare and Medicare HMO plans, please review the plan of care and approve it. It will need to be FAXED BACK to us at [phone] for Medicare purposes. Please let me know if there are questions or concerns regarding this plan of care. Physician Signature: Date:
--- NOTE | 2021-12-06 07:48 | HP.OTDCSUM ---
It has been my pleasure to treat BJ SPRAGUE under orders from [facility], for the diagnosis of right CMC OA for a total of 5 visit(s). Please see the following information for a summary of their discharge status. % Improvement: 90 Objective/Function: right career developer strength 45# left 85#. right lateral pinch 4#. CMC flex 15*. MP flex 25*. IP flex 50*. pt demo with good return of her ROM and strength at this time- pt very happy with her recovery and agree to D.C with [facility] Patient Goals: Regain Mobility, Use Hand/Wrist/Arm Normally Again, Be More Independent in ADLS Goal:100% adherence to protocol: Yes Goal:Daily scar massage when approriate: Yes Goal:ROM equal to unaffected hand: Yes Goal:Business Analytics Analyst/Pinch strength at least 75% of unaffected hand: Yes Goal:No pain with affected hand use: Yes Goal:Full use of affected hand in daily activities including: Yes Plan: D/C Discharge Comments: pt was seen for 5 OT visits following a right CMC arthroplasty- pt has met OT goals and will be D/c with [facility]P. If there are questions or concerns regarding this patient's occupational therapy, please fell free to call me at [phone]. Thank you for the referral of this patient. Sincerely, Melinda Llanes, OTR/L, CHT
== END 2021-12-06 08:37 | disposition home or self-care (01) ==
LOC: OT 07:30
DX: M19.041 Primary osteoarthritis, right hand (principal)
CPT/HCPCS: 97110; 97166; 97530; 97760

== ENCOUNTER → 2021-12-16 | Outpatient (CLI) | payer MEDICAID, SELFPAY ==
--- NOTE | 2021-12-16 15:15 | BI_ITS ---
MAMMOGRAPHY - BILATERAL SCREENING REASON FOR EXAM: Female, 61 years old. Routine annual screening examination. PERTINENT HISTORY: Non-contributory. TECHNIQUE: Digital bilateral breast jer (3D mammographic acquisition) in the CC and MLO projections. 2-D mediolateral oblique (MLO) and craniocaudad (CC) views of both breasts were obtained. CAD: Full Field Digital Mammography with Computer Added Detection was performed. COMPARISON: Mammogram from 07/12/2016, 12/04/2014. FINDINGS: Breast Composition: There are scattered areas of fibroglandular density. There are no dominant masses or suspicious calcifications. Benign-appearing right axillary lymph node, stable since 07/12/2016. No other significant abnormalities are identified. There has been no significant change since the prior study. BI/SCRN MAMM (CAD)W/JER BILAT IMPRESSION: Stable bilateral screening mammogram. Yearly follow-up mammogram recommended. (A) ASSESSMENT CATEGORY: BIRADS Category 2: Benign. A letter regarding these results will be sent to the patient by the facility within 30 days. Approximately 10% of breast cancers are not detected by mammography. A normal mammogram should not delay biopsy of a clinically suspicious abnormality. Electronically Signed: Cipriano Moore, at 12:11 EDT ,
== END | disposition home or self-care (01) ==
LOC: OPBI 15:13
PROVIDERS: Visit Provider Nurse Practitioner Adult Health
DX: Z12.31 Encounter for screening mammogram for malignant neoplasm of breast (principal)
CPT/HCPCS: 77063; 77067

== ENCOUNTER 2023-09-10 09:29 | Emergency (ER) | payer MEDICAID, SELFPAY ==
[2023-09-10] VITALS (21 sets, daily range): BP systolic 97–144; BP diastolic 59–102; PULSE 72–102; RESP 9–27; TEMP 36.3–36.9; O2SAT 83–100; BMI 63.8
--- NOTE | 2023-09-10 09:44 | RAD_ITS ---
STUDY: X-RAY CHEST REASON FOR EXAM: Female, 63 years old. Cough, wheezing, chest pain, weight gain, edema TECHNIQUE: PA and lateral views of the chest. COMPARISON: Comparison is made with prior study March 02, 2021. FINDINGS: EKG electrodes are seen. The lungs are clear and expanded. There is no demonstrated pleural abnormality. Normal size heart. Normal mediastinum and bhavna. Normal visualized pulmonary arteries. Normal visualized aortic arch and descending thoracic aorta. There are diffuse degenerative changes of the visualized thoracic spine. Normal visualized ribs, clavicles, and shoulders. There is no demonstrated abnormality of the visualized soft tissue structures of the upper abdomen. RAD/Chest PA and Lateral IMPRESSION: No acute abnormality is seen. Electronically Signed: Angel Chaudhari MD at 10:37 EDT ,
--- NOTE | 2023-09-10 09:44 | EKG12_ITS ---
Test Reason : CP Blood Pressure : / mmHG Vent. Rate : 083 BPM Atrial Rate : 083 BPM P-R Int : 162 ms QRS Dur : 106 ms QT Int : 396 ms P-R-T Axes : 069 060 048 degrees QTc Int : 465 ms Normal sinus rhythm Normal ECG Confirmed by Blake Starr ([id number]), senior editor DAGMAR GUTIERREZ ([id number]) on 09/11/2023 9:57:21 AM Referred By: UG Confirmed By:Blake Starr
[2023-09-10] MEDS: Ipratropium/Albuterol Sulfate 3 ML AMPUL.NEB INHALATION (09:50)
[2023-09-10] MEDS: Albuterol 2.5 MG/3 ML VIAL.NEB. INHALATION ×3 (09:51)
--- NOTE | 2023-09-10 10:10 | EX.ED.DYSGE1 ---
HPI History of Present Illness Chief Complaint: Chest Pain Detail of Chief Complaint: Multiple symptoms Informant: patient Onset/Context/Timing Onset: Weeks Context: Gradual Onset Timing: Continuous and Intermittent Quality: Detailed HPI narrative Location: Detailed HPI narrative Current Severity: Mild Maximum Severity: Moderate Worsened by: Activity with regards to the chest pain Relieved by: Nothing specific Associated Symptoms Associated Symptoms: wheezing, weight gain, leg swelling Narrative Narrative: Patient is a 63-year-old woman with history of COPD. She continues to smoke. She is concerned because of her leg pain and swelling. She states in spite of wearing compressive thigh-high hoses when she is sitting and compressive knee-high hoses when she is walking and elevating her legs while sitting she continues to have swelling of her legs. She reports a 17 pound weight gain over the past 2 weeks. She has remote history of congestive heart failure. She states she is sleeping with 4 pillows. This is a new symptom for the past 1 to 2 weeks. She does endorse chest pain. It is sharp. It is midsternal. There is no radiation. It is associated with shortness of breath. She denied diaphoresis or nausea. It is made worse with activity i.e. walking. She is not walk up steps because she needs a walker to ambulate and steady herself with. She denies back pain. She denies fever, chills or night sweats. She does have a cough. She does admit to wheezing. Her cough is productive. Patient denies abdominal pain, vomiting or diarrhea. Patient denies dysuria, frequency, urgency or hematuria. She is on a thiazide diuretic. She is not on a loop diuretic. Of note she has history of hypothyroidism. She denies any heat or cold intolerance. Would not expect a 17 pound weight gain to be due to hypothyroidism. Prior similar symptoms: Yes (COPD, and the leg swelling is new) Recent Illness/Hospitalization: No [facility] Medical History COPD (chronic obstructive pulmonary disease) Degeneration of intervertebral disc of lumbosacral region Essential (primary) hypertension Hiatal hernia with GERD without esophagitis Lumbosacral spondylosis Non-ischemic cardiomyopathy AMBER (obstructive sleep apnea) Osteoarthritis of carpometacarpal (CMC) joint of right thumb Radiculopathy of lumbosacral region Spondylosis of lumbosacral region without myelopathy or radiculopathy Tobacco dependence Home Medications gabapentin 600 mg tablet (Neurontin) 600 mg PO QHS 03/03/13 [History Last Taken 03/02/13] trazodone 150 mg tablet 150 mg PO QHS 03/03/13 [History Last Taken 03/02/13] hydrochlorothiazide 25 mg tablet 25 mg PO DAILY #30 TABLETS 03/05/13 [Rx Last Taken 12/10/17 04:00 25 MG] topiramate 25 mg tablet 25 mg PO BID 10/26/15 [History Last Taken Unknown] etodolac 400 mg tablet 400 mg PO BID 03/02/21 [History Last Taken Unknown] pantoprazole 40 mg tablet,delayed release 40 mg PO DAILY 03/02/21 [History Last Taken Unknown] ropinirole 4 mg tablet 4 mg PO QHS 03/02/21 [History Last Taken Unknown] tizanidine 4 mg capsule 4 mg PO QHS PRN 07/25/21 [History Last Taken Unknown] albuterol sulfate 2.5 mg/3 mL (0.083 %) solution for nebulization 2.5 mg inhalation Q6H PRN 10/11/21 [History Last Taken Unknown] albuterol sulfate 90 mcg/actuation aerosol inhaler 2 puff inhalation Q6H PRN 10/11/21 [History Last Taken Unknown] bupropion HCl 150 mg tablet,12 hr sustained-release 150 mg PO BID 10/11/21 [History Last Taken Unknown] duloxetine 60 mg capsule,delayed release 60 mg PO DAILY 10/11/21 [History Last Taken Unknown] fluticasone fur. 100 mcg-umeclid 62.5 mcg-vilant 25 mcg inhalat.powder (Trelegy Ellipta) 1 inh inhalation DAILY 10/11/21 [History Last Taken Unknown] levothyroxine 125 mcg tablet 125 mcg PO DAILY 10/11/21 [History Last Taken Unknown] lisinopril 10 mg tablet 10 mg PO DAILY 10/11/21 [History Last Taken Unknown] doxycycline monohydrate 100 mg capsule 100 mg PO BID #10 CAPSULES 09/10/23 [Rx Last Taken Unknown] prednisone 20 mg tablet 60 mg (3 x 20 mg) PO DAILY #15 TABLETS 09/10/23 [Rx Last Taken Unknown] Allergy/AdvReac Type Severity Reaction Status Date / Time ofloxacin [From Floxin] Allergy Rash Verified 10/11/21 17:04 Sulfa (Sulfonamide Allergy Other Verified 10/11/21 17:04 Antibiotics) adhesive tape AdvReac skin Verified 10/11/21 17:04 irritation latex AdvReac skin Verified 10/11/21 17:04 irritation Surgical History History of left heart catheterization (03/05/13) Social History Smoking Status: Current every day smoker tobacco type: cigarettes ROS ROS ED Constitutional Constitutional ED: Denies chills, fever(s), subjective or sweats Eyes Eyes: Denies blurry vision, change in vision or diplopia ENT ENT ED: Reports rhinorrhea; Denies ear pain or sore throat Cardiovascular Cardiovascular: Reports chest pain and orthopnea; Denies palpitations, paroxysmal nocturnal dyspnea or racing heartbeat Respiratory/Chest Respiratory/Chest: Reports cough, dyspnea, dyspnea on exertion, orthopnea and sputum; Denies paroxysmal nocturnal dyspnea Gastrointestinal Gastrointestinal: Denies abdominal pain, diarrhea, nausea or vomiting Genitourinary Genitourinary ED: Denies dysuria, hematuria or urinary frequency Musculoskeletal Musculoskeletal: Denies arthralgias, back pain, myalgias or neck pain Integumentary Denies abscess, Abrasions or rash Neurologic Neurologic: Denies headache(s) or paresthesias Endocrine Endocrinology: Denies cold intolerance or heat intolerance Hematologic/Lymphatic Hematologic/Lymphatic: Reports systems reviewed and no addt'l complaints, except as documented EXAM Physical Exam Const Vital Signs: 09/10/23 09:31 09/10/23 09:50 09/10/23 09:53 Temperature 97.3 F L Temperature Source Temporal Pulse Rate 89 84 Respiratory Rate 22 H 19 H Respiratory Effort Non-Labored Respiratory Pattern Blood Pressure 144/102 H 129/80 H Blood Pressure Mean 116 96 Pulse Ox 93 92 Oxygen Delivery Method Room Air Room Air Oxygen Flow Rate (L/min) 09/10/23 09:52 09/10/23 09:51 09/10/23 09:55 Temperature 98.4 F Temperature Source Oral Pulse Rate 83 84 Respiratory Rate 16 18 Respiratory Effort Short of Breath Respiratory Pattern Normal Blood Pressure 129/80 H Blood Pressure Mean 96 Pulse Ox 91 Oxygen Delivery Method Room Air Oxygen Flow Rate (L/min) 09/10/23 10:00 09/10/23 10:06 09/10/23 10:47 Temperature 97.6 F L Temperature Source Temporal Pulse Rate 83 87 92 Respiratory Rate 20 H 16 16 Respiratory Effort Respiratory Pattern Blood Pressure 97/76 Blood Pressure Mean 83 Pulse Ox 91 Oxygen Delivery Method Room Air Oxygen Flow Rate (L/min) 09/10/23 11:00 09/10/23 11:40 09/10/23 11:45 Temperature Temperature Source Pulse Rate 102 H Respiratory Rate 23 H Respiratory Effort Respiratory Pattern Blood Pressure 99/72 Blood Pressure Mean 81 Pulse Ox 96 83 94 Oxygen Delivery Method Room Air Room Air Nasal Cannula Oxygen Flow Rate (L/min) 2 09/10/23 12:00 09/10/23 12:51 09/10/23 10:04 Temperature 97.5 F L Temperature Source Temporal Pulse Rate 99 85 87 Respiratory Rate 19 H 23 H 9 L Respiratory Effort Respiratory Pattern Blood Pressure 124/67 H 114/59 L Blood Pressure Mean 86 77 Pulse Ox 96 94 100 Oxygen Delivery Method Nasal Cannula Nasal Cannula Oxygen Flow Rate (L/min) 2 2 09/10/23 10:48 09/10/23 11:04 09/10/23 11:15 Temperature Temperature Source Pulse Rate 92 100 94 Respiratory Rate 27 H 27 H 21 H Respiratory Effort Respiratory Pattern Blood Pressure 97/76 123/76 H 122/60 H Blood Pressure Mean 81 91 76 Pulse Ox 91 92 Oxygen Delivery Method Oxygen Flow Rate (L/min) 09/10/23 11:30 09/10/23 11:45 09/10/23 13:00 Temperature Temperature Source Pulse Rate 91 91 91 Respiratory Rate 26 H 24 H 20 H Respiratory Effort Respiratory Pattern Blood Pressure 122/62 H 124/67 H 124/71 H Blood Pressure Mean 76 80 85 Pulse Ox 87 91 96 Oxygen Delivery Method Oxygen Flow Rate (L/min) 2 09/10/23 14:00 Temperature Temperature Source Pulse Rate 72 Respiratory Rate 19 H Respiratory Effort Respiratory Pattern Blood Pressure 116/83 H Blood Pressure Mean 94 Pulse Ox 94 Oxygen Delivery Method Room Air Oxygen Flow Rate (L/min) Positive well nourished, well developed and obese Constitutional Narrative: Patient is slightly tachypneic. She has audible wheezing. General Appearance ED: well developed and pallor Nutritional Appearance: obese HEENT Reports moist mucous membranes HEENT Narrative: Head is atraumatic normocephalic. Ears normal. Nares patent. Posterior pharynx is normal. Eyes PERRL and EOMs intact bilaterally General Eye ED: Negative for pale conjunctiva or scleral icterus Neck no lymphadenopathy, supple and no JVD Chest Wall inspection of chest normal Resp normal respiratory effort and No clear to auscultation bilaterally Effort and Inspection: Negative for retractions or pain with movement Auscultation: wheezes expiratory wheezes and throughout Cardio regular rate, regular rhythm, S1 normal heart sound, S2 normal heart sound and no murmurs GI normal to inspection, nondistended, normoactive bowel sounds, non-tender, non-distended and no masses; Negative for hepatosplenomegaly Back/Spine no CVA tenderness Extremity Negative for normal to inspection Extremity Narrative: Edema otherwise normal she does have a scar right and left knee due to prior surgery General Extremety ED: Yes edema General Extremity: edema Psych mental status grossly normal Skin no rashes or lesions noted, no wounds and skin turgor normal General Skin Exam: pallor; Negative for elasticity normal or jaundice MDM MDM MDM Narrative Medical decision making narrative: Differential is vast. With patient having chest pain need to rule out cardiac versus noncardiac etiology. Her wheezing may be due to heart failure versus exacerbation of her COPD. To evaluate this chest x-ray and BNP was obtained. To evaluate for cardiac ischemia troponin was obtained. CBC was obtained to assess white count differential because of concern for infection and H&H because she is pale. Electrolyte panel was obtained to assess renal function. Lab Data Attestation: I reviewed the patient's lab results. Lab results narrative: CBC is unremarkable. Basic metabolic panel is remarked for an elevated creatinine. She had elevated creatinines prior results. BNP is normal at 30.6. First troponin is normal at 5. Labs: Laboratory Results - last 24 hr 09/10/23 09/10/23 09:55 12:00 WBC 8.9 RBC 4.50 Hgb 13.8 Hct 43.1 MCV 95.8 MCH 30.7 MCHC 32.0 RDW Std Deviation 46.4 H RDW Coeff of Zachary 13.1 Plt Count 173 MPV 9.6 Immature Gran % (Auto) 0.800 Neut % (Auto) 73.7 H Lymph % (Auto) 16.5 L [place] % (Auto) 5.1 Eos % (Auto) 3.4 Baso % (Auto) 0.5 Absolute Neuts (auto) 6.5 Absolute Lymphs (auto) 1.46 Nucleated RBC % 0 Sodium 138 Potassium 3.8 Chloride 104 Carbon Dioxide 30.0 Anion Gap 4 L BUN 17 Creatinine 1.17 H Estim Creat Clear Calc 76.15 Est GFR (MDRD) Af Amer 60 Est GFR (MDRD) Non-Af 50 L BUN/Creatinine Ratio 14.5 Glucose 96 Calcium 8.8 Total Bilirubin 0.30 AST 17 ALT 24 Alkaline Phosphatase 73 Troponin I High Sens 5 8 B-Natriuretic Peptide 30.6 Total Protein 6.5 Albumin 3.4 Globulin 3.1 Albumin/Globulin Ratio 1.1 Radiography Chest X-Ray - ED: 2 View and Read by ED Physician (Cardiac silhouette and size normal. Lung parenchyma is normal. There is no pneumothorax or effusion noted. [place] is normal. Osseous structures are unremarkable. This independent reviewed interpreted by ne [id number]) Diagnostic Testing: Clinical Impression(s) from Imaging Studies Chest X-Ray 09/10/23 09:44 IMPRESSION: No acute abnormality is seen. Electronically Signed: Angel Chaudhari MD at 10:37 EDT , EKG Initial EKG: Attestation: I personally reviewed and interpreted this EKG as follows: Interpretation: Sinus Rhythm (EKG is normal. Rate is 83. HI intervals 160 ms. QRS duration 106 ms. QT duration is 396 ms. [place] normal. This is with pain.) Prior: Unchanged (June 30, 2021) Treatment and Re-Evaluation :: Patient was reassessed at 1446. On forced expiration patient has bilateral wheezing. Patient states she is moving more air. Since her workup is unremarkable for cardiac ischemia, congestive heart failure will treat for COPD exacerbation. She was discharged with prescription for prednisone and doxycycline. Discharge Plan Triage Chief Complaint: Chest Pain Other Complaint: Lower Extremity Injury ED Provider: Ashok Sanders Dx/Rx/DC Orders Clinical Impression: Acute exacerbation of chronic obstructive pulmonary disease, Essential (primary) hypertension, Non-ischemic cardiomyopathy, Tobacco dependence, Morbid obesity, Bronchitis, chronic with acute exacerbation, Acute bronchospasm, Obstructive sleep apnea Instructions: ED COPD Flare Prescriptions: New prednisone 20 mg tablet 60 mg PO DAILY Qty: 15 0RF doxycycline monohydrate 100 mg capsule 100 mg PO BID Qty: 10 0RF No Action tizanidine 4 mg capsule 4 mg PO QHS PRN albuterol sulfate 2.5 mg /3 mL (0.083 %) solution for nebulization 2.5 mg inhalation Q6H PRN albuterol sulfate 90 mcg/actuation HFA aerosol inhaler 2 puff inhalation Q6H PRN bupropion HCl 150 mg tablet sustained-release 12 hr 150 mg PO BID duloxetine 60 mg capsule,delayed release(DR/EC) 60 mg PO DAILY levothyroxine 125 mcg tablet 125 mcg PO DAILY Trelegy Ellipta 100-62.5-25 mcg blister with device 1 inh inhalation DAILY lisinopril 10 mg tablet 10 mg PO DAILY gabapentin [Neurontin] 600 MG tablet 600 mg PO QHS Patient Comments: neuropathy trazodone 150 MG tablet 150 mg PO QHS Patient Comments: sleep hydrochlorothiazide 25 MG tablet 25 mg PO DAILY Qty: 30 3RF Patient Comments: water pill topiramate 25 MG tablet 25 mg PO BID Patient Comments: anticonvulsant pantoprazole 40 mg tablet,delayed release (DR/EC) 40 mg PO DAILY Patient Comments: take 1 tablet by mouth once daily 1/2 HOUR BEFORE BREAKFAST ON AN EMPTY STOMACH etodolac 400 mg tablet 400 mg PO BID ropinirole 4 mg tablet 4 mg PO QHS Patient Comments: take 1 tablet by mouth at bedtime Primary Care Provider: Yessenia Mcfarlane Referrals: Yessenia Mcfarlane [Primary Care Provider] - 3-5 Days Disposition Disposition: Home, Self Care
[2023-09-10 10:11] LABS: Absolute Lymphocyte Count 1.46 X10^3/uL (0.83-4.51); Absolute Neutrophil Count 6.5 X10^3/uL (2.0-7.7); Basophil# 0.04 X10^3/uL; Basophil% 0.5 % (0-1); Eosinophils% 3.4 % (0-5); Hematocrit 43.1 % (37-47); Hemoglobin 13.8 g/dL (12.0-15.0); Lymphocyte # 1.46 X10^3/ul (0.83-4.51); Lymphocyte % 16.5 % (19-41); Mean Corpuscular Hgb 30.7 pg (27.0-32.0); Mean Corpuscular Volume 95.8 fL (81-99); Mean Platelet Vol. 9.6 fl (6.2-12.0); Monocyte# 0.45 X10^3/uL; Monocyte% 5.1 % (0-10); NRBC Flagged by Analyzer 0 % (0-5); Neutrophil # 6.53 X10^3/uL (2.7-7.7); Neutrophil % 73.7 % (47-70); Platelet Count 173 K/mm3 (150-450); RBC Distribution Width CV 13.1 % (11.6-14.6); RBC Distribution Width SD 46.4 fl (35.1-43.9); White Blood Count 8.9 K/mm3 (4.4-11.0)
[2023-09-10 10:15] LABS: BNP,B-Type NATRIURETIC PEPTIDE 30.6 pg/mL (0-100)
[2023-09-10 10:20] LABS: ALB/GLOB Ratio 1.1 RATIO (0.9-2.4); AST(SGOT) 17 U/L (15-37); Alanine Aminotransfer ALT/SGPT 24 U/L (13-56); Albumin, Serum 3.4 g/dL (3.2-5.0); Alkaline Phosphatase 73 U/L (45-117); Anion Gap 4 (5-15); BUN 17 mg/dL (7-18); BUN/Creat Ratio 14.5 RATIO (10-20); Calcium,Total 8.8 mg/dL (8.5-10.1); Chloride 104 mmol/L (98-107); Creatinine, Serum 1.17 mg/dL (0.55-1.02); EST Glomerular Filtration Rate 50 mL/min (>60); Est Glom Filt Rate - Afr Amer 60 mL/min (>60); Estimated Creatinine Clearance 76.15 ml/min; Globulin 3.1 g/dL (2.2-4.2); Glucose 96 mg/dL (74-106); Potassium 3.8 mmol/L (3.5-5.1); Protein, Total 6.5 g/dL (6.4-8.2); Sodium Level 138 mmol/L (136-145); Troponin-I HS (w/2H Reflex) 5 pg/mL (3.0-54.0)
[2023-09-10 11:59] LABS: Reflex Troponin-HS? (from REC) Y
[2023-09-10 12:30] LABS: Troponin-I HS 8 pg/mL (3.0-54.0)
== END 2023-09-10 15:21 | disposition home or self-care (01) ==
PROVIDERS: Emergency Provider Emergency Medicine; Visit Provider Emergency Medicine
DX: J44.0 Chronic obstructive pulmonary disease with (acute) lower respiratory infection (principal); I11.0 Hypertensive heart disease with heart failure; I50.9 Heart failure, unspecified; J44.1 Chronic obstructive pulmonary disease with (acute) exacerbation; I42.8 Other cardiomyopathies; E66.01 Morbid (severe) obesity due to excess calories; J20.9 Acute bronchitis, unspecified; M79.606 Pain in leg, unspecified; E03.9 Hypothyroidism, unspecified; G47.33 Obstructive sleep apnea (adult) (pediatric); F17.210 Nicotine dependence, cigarettes, uncomplicated; Z79.890 Hormone replacement therapy; Z79.899 Other long term (current) drug therapy
CPT/HCPCS: 71046; 80053; 83880; 84484; 85025; 93005; 94640; 99285; A4216

== ENCOUNTER → 2023-12-13 | Outpatient (CLI) | payer MEDICAID, SELFPAY ==
[2023-12-13 14:44] LABS: Absolute Lymphocyte Count 1.48 X10^3/uL (0.83-4.51); Absolute Neutrophil Count 7.4 X10^3/uL (2.0-7.7); Basophil# 0.06 X10^3/uL; Basophil% 0.6 % (0-1); Eosinophil# 0.26 X10^3/uL; Eosinophils% 2.7 % (0-5); Hematocrit 47.1 % (37-47); Hemoglobin 14.8 g/dL (12.0-15.0); Lymphocyte # 1.48 X10^3/ul (0.83-4.51); Lymphocyte % 15.2 % (19-41); Mean Corp Hgb Conc 31.4 g/dL (32-36); Mean Corpuscular Hgb 29.8 pg (27.0-32.0); Mean Corpuscular Volume 94.8 fL (81-99); Mean Platelet Vol. 10.4 fl (6.2-12.0); Monocyte# 0.45 X10^3/uL; Monocyte% 4.6 % (0-10); NRBC Flagged by Analyzer 0 % (0-5); Neutrophil # 7.44 X10^3/uL (2.7-7.7); Neutrophil % 76.2 % (47-70); Platelet Count 186 K/mm3 (150-450); RBC Distribution Width CV 13.9 % (11.6-14.6); RBC Distribution Width SD 48.3 fl (35.1-43.9); Red Blood Count 4.97 M/mm3 (4.2-5.4); White Blood Count 9.8 K/mm3 (4.4-11.0)
[2023-12-13 14:58] LABS: BNP,B-Type NATRIURETIC PEPTIDE 5.3 pg/mL (0-100)
[2023-12-13 15:11] LABS: AST(SGOT) 16 U/L (15-37); Alanine Aminotransfer ALT/SGPT 29 U/L (13-56); Albumin, Serum 3.4 g/dL (3.2-5.0); Alkaline Phosphatase 90 U/L (45-117); Anion Gap 8 (5-15); BUN 14 mg/dL (7-18); BUN/Creat Ratio 12.1 RATIO (10-20); Chloride 108 mmol/L (98-107); Creatinine, Serum 1.16 mg/dL (0.55-1.02); EST Glomerular Filtration Rate 50 mL/min (>60); Est Glom Filt Rate - Afr Amer 61 mL/min (>60); Globulin 3.3 g/dL (2.2-4.2); Glucose 114 mg/dL (74-106); Potassium 3.9 mmol/L (3.5-5.1); Protein, Total 6.7 g/dL (6.4-8.2); Sodium Level 141 mmol/L (136-145); Thyroid Stim Hormone (TSH) 2.71 uIU/mL (0.358-3.74)
[2023-12-13 16:17] LABS: Hemoglobin A1c 6.6 % (3.8-5.6)
== END | disposition home or self-care (01) ==
PROVIDERS: Referring Provider Nurse Practitioner Family; Visit Provider Nurse Practitioner Family
DX: R06.00 Dyspnea, unspecified (principal)
CPT/HCPCS: 36415; 80053; 83036; 83880; 84443; 85025

== ENCOUNTER → 2024-01-11 | Outpatient (CLI) | payer MEDICAID, SELFPAY ==
--- NOTE | 2024-01-11 15:15 | ECHOD_ITS ---
Reason For Study: DYSPNEA Procedure This was a 2D Doppler, Color Flow transthoracic echocardiogram. The study was technically difficult. No nurse available to start IV for definity. Exam performed in department. Left Ventricle Normal LV size. Left ventricular systolic function is normal. Stage 1 diastolic dysfunction. No regional wall motion abnormalities noted. Right Ventricle Normal RV size. Normal systolic function. Atria Normal left atrium. Normal right atrium. Mitral Valve Normal mitral valve. Tricuspid Valve Normal tricuspid valve. Aortic Valve Trisinus/trileaflet aortic valve. Pulmonic Valve Normal pulmonic valve. Great Vessels Normal aortic root. Pericardium/Pleural No pericardial effusion. MMode/2D Measurements & Calculations Ao root diam: 2.8 cm LAV(MOD-sp4): 49.1 ml LA A4 area: 19.0 cm2 RA A4 area: 11.4 cm2 Time Measurements MV dec time: 0.15 sec Doppler Measurements & Calculations MV E max david: 70.1 cm/sec Lat Peak E' David: 10.4 cm/sec Med Peak E' David: 6.9 cm/sec MV A max david: 86.8 cm/sec E/E' lat: 6.8 E/E' med: 10.2 MV E/A: 0.81 MV dec slope: 458.9 cm/sec2 Ao V2 max: 170.6 cm/sec LV V1 max: 134.5 cm/sec Ao max P.7 mmHg LV V1 max P.3 mmHg Ao V2 mean: 114.7 cm/sec LV V1 mean P.9 mmHg Ao mean P.1 mmHg LV V1 mean: 90.6 cm/sec Ao V2 VTI: 29.4 cm LV V1 VTI: 26.1 cm AV (velocity ratio): 0.89 PA V2 max: 112.4 cm/sec PA V2 mean: 81.4 cm/sec ECHO/Echo Complete Interpretation Summary Normal LV size. Left ventricular systolic function is normal. Stage 1 diastolic dysfunction. Ordering Physician: James Priest Referring Physician: James Priest Performed By: Sohpie Michael RCS
== END | disposition home or self-care (01) ==
PROVIDERS: Referring Provider Nurse Practitioner Family; Visit Provider Nurse Practitioner Family
DX: R06.00 Dyspnea, unspecified (principal)
CPT/HCPCS: 93306

== ENCOUNTER → 2024-07-29 | Outpatient (CLI) | payer MEDICAID, SELFPAY ==
--- NOTE | 2024-07-29 12:18 | CT_ITS ---
EXAM: CT Chest, Lung Cancer Screening Without Intravenous Contrast CLINICAL INDICATION: LUNG CANCER SCREENING- [facility] [place]* TECHNIQUE: Axial computed tomography images of the chest without intravenous contrast using low dose (LDCT) lung cancer screening protocol. This CT exam was performed using one or more of the following dose reduction techniques: automated exposure control, adjustment of the mA and/or kV according to patient size, and/or use of iterative reconstruction technique. COMPARISON: No relevant prior studies available. FINDINGS: LUNGS AND PLEURAL SPACES: Lung emphysema. 2 mm nodule of the lingula. Lingular and right middle lobe atelectasis or scarring. No pneumothorax. No significant effusion. No suspicious pulmonary nodules. HEART: Unremarkable. No cardiomegaly. No significant pericardial effusion. No significant coronary artery calcifications. BONES/JOINTS: Unremarkable. No acute fracture. No dislocation. SOFT TISSUES: Unremarkable. VASCULATURE: Unremarkable. No thoracic aortic aneurysm. LYMPH NODES: Unremarkable. No enlarged lymph nodes. CT/Low Dose CT Lung Screening IMPRESSION: 1. No suspicious pulmonary nodules. 2. LUNG-RADS 2: Benign. Continue low-dose CT screening of the chest in 12 sun ths is recommended. Reading Location[facility]
== END | disposition home or self-care (01) ==
LOC: CT 12:11
PROVIDERS: PCP Nurse Practitioner Family; Referring Provider Nurse Practitioner Family; Visit Provider Nurse Practitioner Family
DX: Z12.2 Encounter for screening for malignant neoplasm of respiratory organs (principal); Z87.891 Personal history of nicotine dependence
CPT/HCPCS: 71271

== ENCOUNTER → 2024-11-26 | Outpatient (CLI) | payer MEDICAID, SELFPAY ==
[2024-11-26 16:53] LABS: Hematocrit 48.8 % (37-47); Hemoglobin 15.8 g/dL (12.0-15.0); Immature Granulocytes Count 0.060 X10^3/uL (0.0-0.0); Mean Corp Hgb Conc 32.4 g/dL (32-36); Mean Corpuscular Volume 95.7 fL (81-99); Mean Platelet Vol. 10.3 fl (6.2-12.0); NRBC Flagged by Analyzer 0 % (0-5); Platelet Count 215 K/mm3 (150-450); RBC Distribution Width CV 15.3 % (11.6-14.6); RBC Distribution Width SD 54.0 fl (35.1-43.9); Red Blood Count 5.10 M/mm3 (4.2-5.4); White Blood Count 8.9 K/mm3 (4.4-11.0)
[2024-11-26 17:51] LABS: Microalbumin,Random Urine 85.5 mg/L (<20 mg/L)
[2024-11-26 17:58] LABS: AST(SGOT) 19 U/L (<=31); Alanine Aminotransfer ALT/SGPT 14 U/L (<=34); Albumin, Serum 3.9 g/dL (3.4-4.8); Alkaline Phosphatase 93 U/L (35-104); Anion Gap 16 (5-15); BUN 11 mg/dL (4-19); BUN/Creat Ratio 10.3 RATIO (10-20); Calcium,Total 9.3 mg/dL (7.6-11.0); Carbon Dioxide 23.5 mmol/L (21.0-32.0); Chloride 101 mmol/L (98-108); Cholesterol 219 mg/dL (<=200); Globulin 2.6 g/dL (2.2-4.2); Glucose 132 mg/dL (70-99); Low Density Lipoprotein Calc. 95 mg/dL; Potassium 3.8 mmol/L (3.3-5.1); Triglycerides 390 mg/dL; Very Low Density Lipoprotein 78 mg/dL (5-40); Vitamin B12 283 pg/mL (180-914); Vitamin D,25 Hydroxy 6.3 ng/mL (30-100); cholesterol:hdl ratio screen 4.72
== END | disposition home or self-care (01) ==
LOC: VSLAB 11:03
PROVIDERS: PCP Nurse Practitioner Family; Visit Provider Nurse Practitioner Family
DX: I10 Essential (primary) hypertension (principal)
CPT/HCPCS: 36415; 80053; 80061; 82043; 82306; 82607; 83036; 84443; 85025

== ENCOUNTER → 2025-04-15 | Outpatient (CLI) | payer MEDICAID, SELFPAY ==
[2025-04-15 11:08] LABS: Hematocrit 51.8 % (37-47); Hemoglobin 16.5 g/dL (12.0-15.0); Immature Granulocytes Count 0.090 X10^3/uL (0.0-0.0); Mean Corp Hgb Conc 31.9 g/dL (32-36); Mean Corpuscular Volume 97.0 fL (81-99); Mean Platelet Vol. 10.1 fl (6.2-12.0); NRBC Flagged by Analyzer 0 % (0-5); Platelet Count 192 K/mm3 (150-450); RBC Distribution Width CV 15.1 % (11.6-14.6); RBC Distribution Width SD 53.9 fl (35.1-43.9); Red Blood Count 5.34 M/mm3 (4.2-5.4); White Blood Count 12.2 K/mm3 (4.4-11.0)
[2025-04-15 11:24] LABS: Creatinine, Urine (random) 97.60 mg/dL (28.00-217.00); Microalbumin,Random Urine 16.5 mg/L (<20 mg/L)
[2025-04-15 11:41] LABS: AST(SGOT) 19 U/L (<=31); Alanine Aminotransfer ALT/SGPT 20 U/L (<=34); Albumin, Serum 3.9 g/dL (3.4-4.8); Alkaline Phosphatase 82 U/L (35-104); Anion Gap 11 (5-15); BUN 15 mg/dL (4-19); BUN/Creat Ratio 14.0 RATIO (10-20); Calcium,Total 9.3 mg/dL (7.6-11.0); Carbon Dioxide 27.7 mmol/L (21.0-32.0); Chloride 100 mmol/L (98-108); Globulin 2.5 g/dL (2.2-4.2); Glucose 124 mg/dL (70-99); Potassium 3.9 mmol/L (3.3-5.1); Vitamin D,25 Hydroxy 33.1 ng/mL (30-100)
== END | disposition home or self-care (01) ==
LOC: VSLAB 10:39
PROVIDERS: PCP Nurse Practitioner Family
DX: E11.9 Type 2 diabetes mellitus without complications (principal); E03.9 Hypothyroidism, unspecified; E55.9 Vitamin D deficiency, unspecified
CPT/HCPCS: 36415; 80053; 82043; 82306; 82570; 83036; 84443; 85025